=== PATIENT | male | born 1980 | race Caucasian/White ===

== ENCOUNTER 2023-01-06 18:52 | Emergency (ER) | payer MEDICAID, SELFPAY ==
[2023-01-06 18:59] VITALS: BP 154/88; PULSE 120; RESP 18; TEMP 36.7; O2SAT 99; BMI 37.3
--- NOTE | 2023-01-06 19:07 | ED.C_ITS ---
HPI - Psych General: Chief Complaint: Psychiatric Symptoms Stated Complaint: MHE Time Seen by Provider: 01/06/23 19:00 Source: patient Mode of arrival: ambulatory Limitations: no limitations History of Present Illness: 42-year-old male states he has a history of bipolar along with depression states has been having increasing severe depression he states that he has had some passing suicidal thoughts denies any specific plans denies any worsening improving factors. He states he feels like that needs his meds adjusted as he is out of some of them currently Associated symptoms: Reports depression and suicidal ideation Review of Systems Const: Denies: fever(s), chills, body aches or change in appetite ENMT: Denies: throat pain or dental pain Card: Denies: chest pain Resp: Denies: dyspnea GI: Denies: abdominal pain, nausea, vomiting or diarrhea Musc: Denies: neck pain or back pain Skin/Breast: Denies: rash Neuro: Denies: headache(s) Psych: Reports: depression and suicidal ideation Physical Exam Const: COMMON NORMALS: no acute distress, patient oriented x3 and healthy appearing HENMT: COMMON NORMALS: normocephalic and atraumatic HEAD & SCALP: normocephalic and atraumatic Neck/C-Spine: COMMON NORMALS: full ROM and supple Chest: COMMONS NORMALS: normal inspection of the chest Resp: COMMON NORMALS: normal respiratory effort Extremity: COMMON NORMALS: normal to inspection and full ROM Neuro: COMMON NORMALS: patient oriented x3, moves all extremities and no focal motor deficits Psych: COMMON NORMALS: mental status grossly normal, Normal thought process present and cooperative MOOD & AFFECT: Yes depressed mood THOUGHT PROCESS: Normal thought process present Skin: COMMON NORMALS: no rashes or lesions noted and no wounds GENERAL SKIN EXAM: no rashes or lesions noted Course Vital Signs: Vital signs: Vital Signs Temperature 98.0 F 01/06/23 18:59 Pulse Rate 120 H 01/06/23 18:59 Respiratory Rate 18 01/06/23 18:59 Blood Pressure 154/88 01/06/23 18:59 Pulse Oximetry 99 01/06/23 18:59 MDM - Psych Medical Decision Making Patient presents here with depression he is had passing suicidal thoughts none here. Patient first went to be admitted but when he could not go outside and smoke he did not want to stay I did have him evaluated by Dr. Anguiano psychiatry who agrees that patient is not a threat to himself at this time and is stable for discharge Medical Records I reviewed the patient's medical records. Lab Data I reviewed the patient's lab results. 01/06/23 19:25 01/06/23 19:25 Laboratory Results WBC 8.48 10^3/uL (3.29-11.43) 01/06/23 19:25 RBC 4.76 10^6/uL (3.85-5.65) 01/06/23 19:25 Hgb 12.90 g/dL (11.27-16.99) 01/06/23 19:25 Hct 43.0 % (37-53) 01/06/23 19:25 MCV 90.3 fl (82-101) 01/06/23 19: MCH 27.1 pg (27-33) 01/06/23 19:25 MCHC 30.0 g/dL (30-55) 01/06/23 19:25 RDW 15.1 % (12.1-15.1) 01/06/23 19:25 Plt Count 317 10^3/cmm (157-399) 01/06/23 19:25 MPV 10.3 fL (7.4-10.4) 01/06/23 19:25 Neut % (Auto) 71.7 % 01/06/23 19:25 Lymph % (Auto) 20.9 % 01/06/23 19:25 [place] % (Auto) 5.9 % 01/06/23 19:25 Eos % (Auto) 0.5 % 01/06/23 19:25 Baso % (Auto) 0.6 % 01/06/23 19:25 Neut # (Auto) 6.09 10^3/uL (1.8-7.7) 01/06/23 19:25 Lymph # (Auto) 1.8 10^3/uL (0.8-4.8) 01/06/23 19:25 [place] # (Auto) 0.5 10^3/uL (0.2-0.9) 01/06/23 19:25 Eos # (Auto) 0.0 10^3/uL (0.0-0.8) 01/06/23 19:25 Baso # (Auto) 0.1 10^3/uL (0.0-0.1) 01/06/23 19:25 Nucleated RBC % (auto) 0 % 01/06/23 19:25 Nucleated RBCs # 0.0 /100WBC 01/06/23 19:25 Sodium 137 mmol/L (136-145) 01/06/23 19:25 Potassium 4.6 mmol/L (3.5-5.1) 01/06/23 19:25 Chloride 102 mmol/L (98-107) 01/06/23 19:25 Carbon Dioxide 22 mmol/L (22-29) 01/06/23 19:25 Anion Gap 17.6 (5-19) 01/06/23 19:25 BUN 25 mg/dL (6-20) H 01/06/23 19:25 Creatinine 1.2 mg/dL (0.7-1.2) 01/06/23 19:25 GFR Calculation 66.1 mL/min (90-130) L 01/06/23 19:25 Glucose 186 mg/dL (65-115) H 01/06/23 19:25 Calculated Osmolality 293 mOsm/kg (285-295) 01/06/23 19:25 Calcium 9.2 mg/dL (8.5-10.5) 01/06/23 19:25 Total Bilirubin 0.4 mg/dL (0.15-1.2) 01/06/23 19:25 AST 24 U/L (0-40) 01/06/23 19:25 ALT 45 U/L (0-41) H 01/06/23 19:25 Alkaline Phosphatase 82 U/L (40-130) 01/06/23 19:25 Total Protein 8.0 g/dL (6.6-8.7) 01/06/23 19:25 Albumin 4.1 g/dL (3.5-5.2) 01/06/23 19:25 Globulin 3.9 g/dL (1.3-4.6) 01/06/23 19:25 Salicylates < 0.3 mg/dL (3-10) L 01/06/23 19:25 Acetaminophen < 5.0 ug/mL (10-30) L 01/06/23 19:25 Ethyl Alcohol < 10 mg/dL (0-10) 01/06/23 19:25 All radiology interpretation(s) finalized by discharge Discharge Plan Discharge Patient Disposition: Home Clinical Impression: Depression Condition: Stable Prescriptions: No Action No Known Home Medications Discharge Orders: Discharge ED (Routine); Ordered 01/06/23 Ordered By: Leanna Pacheco Discharge Diet: Advance as tolerated Discharge Activity: Resume usual activity Patient Instructions: Depression (ED) Coding Level of Care Code ED Border Machine Operator for Sahra Markham
[2023-01-06 19:43] LABS: Basophils # 0.1 10^3/uL (0.0-0.1); Basophils % 0.6 %; Eosinophils % 0.5 %; Lymphocytes # 1.8 10^3/uL (0.8-4.8); Lymphocytes % 20.9 %; Mean Corpuscular Hemoglobin 27.1 pg (27-33); Mean Corpuscular Volume 90.3 fl (82-101); Mean Platelet Volume 10.3 fL (7.4-10.4); Monocytes # 0.5 10^3/uL (0.2-0.9); Monocytes % 5.9 %; Neutrophils # 6.09 10^3/uL (1.8-7.7); Neutrophils % 71.7 %; Nucleated Red Blood Cells % 0 %; Platelet Count 317 10^3/cmm (157-399); Red Blood Count 4.76 10^6/uL (3.85-5.65); Red Cell Distribution Width 15.1 % (12.1-15.1); White Blood Count 8.48 10^3/uL (3.29-11.43)
[2023-01-06] MEDS: LORazepam 2 mg Tablet PO (19:55)
[2023-01-06 20:02] LABS: Alanine Aminotransferase 45 U/L (0-41); Albumin Level 4.1 g/dL (3.5-5.2); Alkaline Phosphatase 82 U/L (40-130); Anion Gap 17.6 (5-19); Aspartate Amino Transferase 24 U/L (0-40); Blood Urea Nitrogen 25 mg/dL (6-20); Calcium 9.2 mg/dL (8.5-10.5); Carbon Dioxide 22 mmol/L (22-29); Chloride 102 mmol/L (98-107); Globulin 3.9 g/dL (1.3-4.6); Glomerular Filtration Rate 66.1 mL/min (90-130); Glucose 186 mg/dL (65-115); Osmolality Calculated 293 mOsm/kg (285-295); Potassium 4.6 mmol/L (3.5-5.1); Sodium 137 mmol/L (136-145); Total Bilirubin 0.4 mg/dL (0.15-1.2)
[2023-01-06 20:06] LABS: Acetaminophen < 5.0 ug/mL (10-30); Alcohol Level < 10 mg/dL (0-10); Salicylate < 0.3 mg/dL (3-10)
== END 2023-01-06 20:44 | disposition home or self-care (01) ==
PROVIDERS: Emergency Provider Emergency Medicine
DX: F32.A Depression, unspecified (principal)
CPT/HCPCS: 36415; 80053; 80307; 85025; 99283

== ENCOUNTER 2023-01-07 08:09 | Inpatient (IN) | payer MEDICAID, SELFPAY ==
--- NOTE | 2023-01-07 09:02 | XR_ITS ---
WS: [id number] PORTABLE CHEST HISTORY: hx testicular Ca COMPARISON: None available. Lungs are clear and well expanded. No pleural effusion or pneumothorax. Cardiac size: Normal. Mediastinum/Aorta: Normal mediastinum. No osseous abnormality seen. IMPRESSION: Unremarkable portable chest.
--- NOTE | 2023-01-07 09:03 | ED.C_ITS ---
HPI - Psych 2 General: Stated Complaint: Si, Dizzy, nausea Time Seen by Provider: 01/07/23 08:39 Source: patient Mode of arrival: ambulatory History of Present Illness: 42-year-old male presents to the emergen cy room with complaint of suicidal ideation he took 3 g of Trileptal a couple of hours ago. Denies taking anything else. He has a history of previous admissions for psychiatric illnesses and history of previous suicidal attempts. He also states he has a history of testicular cancer with metastasis that he had incomplete treatment for at [facility] in [place]. He was recently imprisoned he states he in the past used methamphetamine and marijuana and has been clean for about 7 to 9 months. He is awake alert and oriented answers questions appropriately. MD complaint: suicidal ideation History of same: Yes Relieving factors: none Exacerbating factors: none Associated symptoms: Reports no associated symptoms, depression and suicidal ideation; Deny auditory hallucinations, visual hallucinations, delusions, homicidal ideation, racing thoughts or other If self harm: admits thoughts of self harm, has plan, has acted on plan and intentional overdose Review of Systems 2 Const: Denies: fever(s) or chills Card: Denies: chest pain Resp: Denies: dyspnea GI: Denies: abdominal pain : Denies: dysuria, urinary frequency or urinary urgency Musc: Denies: neck pain or back pain Skin/Breast: Denies: rash Psych: Reports: depression and suicidal ideation; Denies: visual hallucinations, auditory hallucinations or homicidal ideation Physical Exam 2 Const: GENERAL APPEARANCE: cooperative and comfortable O RIENTATION/CONSCIOUSNESS: Yes awake, Yes oriented to person, Yes oriented to place and Yes oriented to time HENMT: COMMON NORMALS: normocephalic, atraumatic and hearing grossly normal bilaterally HEAD & SCALP: normocephalic and atraumatic Resp: COMMON NORMALS: normal respiratory effort, No retractions, No use of accessory muscles and clear to auscultation bilaterally AUSCULTATION: clear to auscultation bilaterally Cardio: COMMON NORMALS: regular rate, regular rhythm and No murmurs present (Cardio) RATE: regular rate RHYTHM: regular rhythm GI: COMMON NORMALS: Soft to palpation and No hepatosplenomegaly present A USCULTATION: Yes normoactive bowel sounds PALPATION: Yes Soft to palpation, No Tenderness to palpation present (GI), No Guarding due to palpation present (GI) and Yes No hepatosplenomegaly present Extremity: COMMON NORMALS: normal to inspection, capillary refill normal, no clubbing, cyanosis or edema, no calf tenderness and no pedal edema Neuro: SENSORIUM/ORIENTATION: Yes oriented to person, Yes oriented to place and Yes oriented to time Psych: THOUGHT CONTENT: No delusions Skin: COMMON NORMALS: no rashes or lesions noted GENERAL SKIN EXAM: no rashes or lesions noted Course 2 Vital Signs: Vital signs: Vital Signs Temperature 98.0 F 01/10/23 20:21 Pulse Rate 109 H 01/10/23 20:21 Respiratory Rate 20 H 01/10/23 20:21 Blood Pressure 129/60 01/10/23 20:21 Pulse Oximetry 97 01/10/23 20:21 Oxygen Delivery Me thod Room Air 01/10/23 20:21 MDM - Psych Medical Decision Making Discussed poison control. They did not feel any further observation was needed. Discussed with hospitalist and with psychiatry will admit to the MPU if the patient has any problems, hospitalist can be consulted will admit for suicidal ideation Medical Records I reviewed the patient's medical records. Lab Data I reviewed the patient's lab results. 01/07/23 09:08 01/07/23 09:08 Laboratory Results WBC 6.79 10^3/uL (3.29-11.43) 01/07/23 09:08 RBC 4.53 10^6/uL (3.85-5.65) 01/07/23 09:08 Hgb 12.10 g/dL (11.27-16.99) 01/07/23 09:08 Hct 40.7 % (37-53) 01/07/23 09:08 MCV 89.8 fl (82-101) 01/07/23 09:08 MCH 26.7 pg (27-33) L 01/07/23 09:08 MCHC 29.7 g/dL (30-55) L 01/07/23 09:08 RDW 15.2 % (12.1-15.1) H 01/07/23 09:08 Plt Count 269 10^3/cmm (157-399) 01/07/23 09:08 MPV 10.9 fL (7.4-10.4) H 01/07/23 09:08 Neut % (Auto) 73.4 % 01/07/23 09:08 Lymph % (Auto) 19.6 % 01/07/23 09:08 [place] % (Auto) 5.6 % 01/07/23 09:08 Eos % (Auto) 0.6 % 01/07/23 09:08 Baso % (Auto) 0.4 % 01/07/23 09:08 Neut # (Auto) 4.98 10^3/uL (1.8-7.7) 01/07/23 09:08 Lymph # (Auto) 1.3 10^3/uL (0.8-4.8) 01/07/23 09:08 [place] # (Auto) 0.4 10^3/uL (0.2-0.9) 01/07/23 09:08 Eos # (Auto) 0.0 10^3/uL (0.0-0.8) 01/07/23 09:08 Baso # (Auto) 0.0 10^3/uL (0.0-0.1) 01/07/23 09:08 Nucleated RBC % (auto) 0 % 01/07/23 09:08 Nucleated RBCs # 0.0 /100WBC 01/07/23 09:08 Sodium 142 mmol/L (136-145) 01/07/23 09:08 Potassium 5.0 mmol/L (3.5-5.1) 01/07/23 09:08 Chloride 107 mmol/L (98-107) 01/07/23 09:08 Carbon Dioxide 25 mmol/L (22-29) 01/07/23 09:08 Anion Gap 15.0 (5-19) 01/07/23 09:08 BUN 26 mg/dL (6-20) H 01/07/23 09:08 Creatinine 1.1 mg/dL (0.7-1.2) 01/07/23 09:08 GFR Calculation 73.1 mL/min (90-130) L 01/07/23 09:08 Glucose 161 mg/dL (65-115) H 01/07/23 09:08 Calculated Osmolality 302 mOsm/kg (285-295) H 01/07/23 09:08 Calcium 9.4 mg/dL (8.5-10.5) 01/07/23 09:08 Total Bilirubin 0.2 mg/dL (0.15-1.2) 01/07/23 09:08 AST 26 U/L (0-40) 01/07/23 09:08 ALT 44 U/L (0-41) H 01/07/23 09:08 Alkaline Phosphatase 84 U/L (40-130) 01/07/23 09:08 Total Protein 7.6 g/dL (6.6-8.7) 01/07/23 09:08 Albumin 4.1 g/dL (3.5-5.2) 01/07/23 09:08 Globulin 3.5 g/dL (1.3-4.6) 01/07/23 09:08 Urine Color Yellow (Yellow) 01/07/23 11:25 Urine Appearance Clear (CLEAR) 01/07/23 11:25 Urine pH 5 (5-7) 01/07/23 11:25 Ur Specific [place] 1.020 (1.005-1.030) 01/07/23 11:25 Urine Protein Trace (Negative) 01/07/23 11:25 Urine Glucose (UA) 2+ (Normal) H 01/07/23 11:25 Urine Ketones 1+ (Negative) H 01/07/23 11:25 Urine Blood Neg (Negative) 01/07/23 11:25 Urine Nitrate Negative (Negative) 01/07/23 11:25 Urine Bilirubin Neg (Negative) 01/07/23 11:25 Urine Urobilinogen Norm mg/dL (Negative) 01/07/23 11:25 Ur Leukocyte Esterase Negative (Negative) 01/07/23 11:25 Urine RBC None /hpf (0-2) 01/07/23 11:25 Urine WBC Rare /hpf (0-5) 01/07/23 11:25 Ur Squamous Epith Cells Rare /hpf (0-5) 01/07/23 11:25 Amorphous Sediment Not Reportable 01/07/23 11:25 Urine Bacteria None /hpf (NONE) 01/07/23 11:25 Urine Mucus Trace /hpf 01/07/23 11:25 Salicylates < 0.3 mg/dL (3-10) L 01/07/23 09:08 Urine Opiates Screen Negative ng/mL (Negative) 01/07/23 11:25 Acetaminophen < 5.0 ug/mL (10-30) L 01/07/23 09:08 Ur Barbiturates Screen Negative ng/mL (Negative) 01/07/23 11:25 Oxcarbazepine Metabol 17.8 mcg/mL (8.0-35.0) 01/07/23 09:08 Ur Phencyclidine Scrn Negative ng/mL (Negative) 01/07/23 11:25 Ur Amphetamines Screen Negative ng/mL (Negative) 01/07/23 11:25 U Benzodiazepines Scrn Positive ng/mL (Negative) H 01/07/23 11:25 Urine Cocaine Screen Negative ng/mL (Negative) 01/07/23 11:25 U Marijuana (THC) Screen Negative ng/mL (Negative) 01/07/23 11:25 Ethyl Alcohol < 10 mg/dL (0-10) 01/07/23 09:08 All radiology interpretation(s) finalized by discharge Discharge Plan Discharge Patient Disposition: Admitted As Inpatient Admit Provider: Jr Dang Clinical Impression: Suicidal ideation, Depression Condition: Stable Coding Level of Care Code ED Manager Flight for Sahra Markham
[2023-01-07 09:37] LABS: Basophils % 0.4 %; Eosinophils % 0.6 %; Hematocrit 40.7 % (37-53); Lymphocytes # 1.3 10^3/uL (0.8-4.8); Lymphocytes % 19.6 %; Mean Corpuscular HGB Conc 29.7 g/dL (30-55); Mean Corpuscular Hemoglobin 26.7 pg (27-33); Mean Corpuscular Volume 89.8 fl (82-101); Mean Platelet Volume 10.9 fL (7.4-10.4); Monocytes # 0.4 10^3/uL (0.2-0.9); Monocytes % 5.6 %; Neutrophils # 4.98 10^3/uL (1.8-7.7); Neutrophils % 73.4 %; Nucleated Red Blood Cells % 0 %; Platelet Count 269 10^3/cmm (157-399); Red Blood Count 4.53 10^6/uL (3.85-5.65); Red Cell Distribution Width 15.2 % (12.1-15.1); White Blood Count 6.79 10^3/uL (3.29-11.43)
[2023-01-07 09:54] LABS: Alanine Aminotransferase 44 U/L (0-41); Albumin Level 4.1 g/dL (3.5-5.2); Alkaline Phosphatase 84 U/L (40-130); Blood Urea Nitrogen 26 mg/dL (6-20); Calcium 9.4 mg/dL (8.5-10.5); Carbon Dioxide 25 mmol/L (22-29); Chloride 107 mmol/L (98-107); Globulin 3.5 g/dL (1.3-4.6); Glomerular Filtration Rate 73.1 mL/min (90-130); Glucose 161 mg/dL (65-115); Osmolality Calculated 302 mOsm/kg (285-295); Sodium 142 mmol/L (136-145); Total Bilirubin 0.2 mg/dL (0.15-1.2); Total Protein 7.6 g/dL (6.6-8.7)
--- NOTE | 2023-01-07 09:58 | ECG_ITS ---
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 Measurements Intervals Nash Rate: 99 P: 61 SC: 165 QRS: -13 QRSD: 106 T: 53 QT: 380 QTc: 488 Interpretive Statements SINUS RHYTHM No significant abnormality noted No previous ECG available for comparison Electronically Signed On 01-07-2023 16:55:38 WEATHER FORECASTER by Sully Hickey M.D. [id number]
[2023-01-07 10:00] LABS: Acetaminophen < 5.0 ug/mL (10-30); Alcohol Level < 10 mg/dL (0-10); Salicylate < 0.3 mg/dL (3-10)
[2023-01-07 10:02] LABS: Aspartate Amino Transferase 26 U/L (0-40)
--- NOTE | 2023-01-07 11:31 | PC.PHAR ---
pt brought in medication bottles
[2023-01-07 11:45] VITALS: BP 112/68; PULSE 100; RESP 16; O2SAT 98
[2023-01-07 12:04] LABS: Amphetamines Screen Urine Negative (Negative); Barbiturates Screen Urine Negative (Negative); Benzodiazepines Screen Urine Positive (Negative); Cocaine Screen Urine Negative (Negative); Glucose Urine UA 2+ (Normal); Opiate Screen Urine Negative (Negative); PCP Screen Urine Negative (Negative); Protein Urine Trace (Negative); THC Screen Urine Negative (Negative); Urine Appearance Clear (CLEAR); Urine Color Yellow (Yellow); pH Urine 5 (5-7)
[2023-01-07 12:05] LABS: Add Urine Microscopic? YES; Bilirubin Urine Neg (Negative); Blood Urine Neg (Negative); Ketones Urine 1+ (Negative); Leukocyte Esterase Urine Negative (Negative); Nitrate Urine Negative (Negative); Urobilinogen Urine Norm (Negative)
[2023-01-07 12:13] LABS: Add Urine Culture? No; Mucus Urine TRACE /hpf; Squamous Epithelial Cell Urine RARE /hpf (0-5); WBC Urine RARE /hpf (0-5)
--- NOTE | 2023-01-07 12:20 | PC.NURSE ---
96 hr rights reviewed with patient with [facility] security assistant Robert @[id number]. No questions or concerns verbalized at this time. 96 hr pt rights lest at bedside with patient.
[2023-01-07 12:43] VITALS: BP 144/66; PULSE 102; RESP 16; TEMP 36.6; O2SAT 100
[2023-01-07 14:00] VITALS: BP 143/83; PULSE 108; RESP 16; TEMP 36.6; O2SAT 96
[2023-01-07] MEDS: nicotine 4 mg lozenge MUCOUS MEM ×2 (14:09→19:15)
--- NOTE | 2023-01-07 17:00 | PC.NURSE ---
Reached out to [facility] in [place], [place]. They confirmed he does receive treatment for testicular cancer there, but has not been seen since December 27, 2021.
--- NOTE | 2023-01-07 17:36 | W.PM.NPUH&PS ---
Providers/Chief Complaint Admitting Physician: Jr Dang MD Chief Complaint: Si, Dizzy, nausea HPI NPU History of Present Illness Heri Martel is a 42 year old male admitted with an overdose on 3 g of Trileptal with complaints of suicidal ideation. The patient was admitted to the neuropsychiatric unit for further evaluation and treatment. He reports that he has stage III testicular cancer with metastasis to the neck. He states that his treatment had been incomplete at [facility] in [place]. He reports that he had been imprisoned until a few weeks ago and states that he began to use methamphetamine and marijuana after sobriety for approximately 9 months while incarcerated. He states that he has been having a history of mood swings. He reports having multiple inpatient hospitalizations. He reports a past history of depression. He reports some feelings of hopelessness. He reports being angry and frustrated as he states that his radiation therapy was not approved and because of it, the cancer had spread patent. Patient reports that he has great desire to live but at other times he alternates with having thoughts of wanting to be . The patient had endorsed a history of intense mood swings. He reports ports having problems with sitting still and states that he is frequently bored and easily distracted. He had stated that he had been diagnosed with ADHD as an adolescent and had previously been on stimulants for treatment. He also reported a history of methamphetamine abuse along with marijuana use. The patient reports that he was [facility] weeks ago and relapsed on methamphetamine while staying with a friend. Patient had reported being upset that he had received information that he would not be able to stay with his mother due to his mood instability. Patient does report PTSD related symptoms including nightmares, flashbacks, avoidance of specific places that remind him of his trauma and occasional physical violent outbursts. Inpatient hospitalizations: He reports multiple inpatient hospitalizations throughout his lifetime. Outpatient psychiatric treatment: None currently Current medications: Hydrochlorothiazide, lisinopril, Trileptal, ibuprofen, Wellbutrin Allergies: Haldol,morphine and Prozac Legal history: He reports that he spent over 18 years of his life in detention. He is currently on probation in [place] Medical history: Atrial fibrillation, testicular cancer Surgical history: None reported Drug and alcohol history: He had reported a past history of substance abuse treatment. He reports his drugs of choice remain marijuana and methamphetamine with reports that he had used methamphetamine most recently 2 weeks ago. Family psychiatric history: Unknown Social history: Patient was adopted at 2 weeks of age. He was raised by his biological mother and reports that he had did not graduate from high school and had problems with learning. He had to earned his GED. He had previously been diagnosed with ADHD. He had reported no legal problems or problems with juvenile justice until after the age of 17. He has reported having a variety of different jobs. He reports no clear history of sexual physical or emotional abuse during childhood but did report having history of PTSD stemming from his time that he was incarcerated for many years in [place]. He reports he is never been and has a 14-year-old child that he sees on occasion. Meds NPU Home Medications Medication Instructions Recorded Confirmed Last Taken Type hydrochlorothiazide 25 mg tablet 25 mg PO QAM 01/07/23 01/07/23 01/07/23 History ibuprofen 800 mg tablet 800 mg PO BID 01/07/23 01/07/23 Unknown History lisinopril 20 mg tablet 20 mg PO QAM 01/07/23 01/07/23 01/07/23 History oxcarbazepine 150 mg tablet 150 mg PO BID 01/07/23 01/07/23 01/07/23 History (Trileptal) oxcarbazepine 300 mg tablet 300 mg PO BID 01/07/23 01/07/23 01/07/23 History (Trileptal) Allergies Allergy/AdvReac Type Severity Reaction Status Date / Time fluoxetine [From Prozac] Allergy Unknown Verified 01/07/23 11:30 haloperidol Allergy Unknown Verified 01/07/23 11:30 morphine Allergy ALGY-Hives Verified 01/07/23 14:18 Penicillins Allergy Unknown Verified 01/07/23 11:30 Mental Status Exam MSE Comments: He is friendly and cooperative on interview. He appeared slightly overweight white male who appeared his stated age. His gait was within normal limits. His hygiene was fair. There was no evidence of any abnormal involuntary motor movements, tics or tremors appreciated. There was no evidence of psychomotor agitation or psychomotor retardation. He did appear somewhat fidgety on interview. His mood was described as depressed. His affect was restricted in range and mood-congruent. His thought process was linear logical and goal-directed. His thought content showed no evidence of homicidal ideation. He had endorsed passive suicidal ideation with no active plan. There was no clear evidence of delusional thinking. He did not appear to be responding to internal stimuli. His attention and concentration appeared poor. He was alert and oriented to person place time and situation. His insight was limited. His judgment is poor. His impulse control appeared guarded at this time. His recent and remote memory appear grossly intact. Vitals/I&O/Wt Last Vital Signs Temp 97.9 F 01/07/23 14:00 Pulse 108 H 01/07/23 14:00 Resp 16 01/07/23 14:00 BP 143/83 01/07/23 14:00 Pulse Ox 96 01/07/23 14:00 O2 Del Method Room Air 01/07/23 14:00 Weight last 48 hrs Weight 122.47 kg Data NPU 01/07/23 09:08 01/07/23 09:08 A&P Assessment and plan (1) Dysthymic disorder: (2) Anxiety disorder, unspecified: (3) ADHD (attention deficit hyperactivity disorder), combined type: (4) PTSD (post-traumatic stress disorder): (5) Depression: Plan The patient is a 42-year-old white male admitted with suicidal ideation and overdose on Trileptal currently facing stressors including metastatic testicular cancer. He would likely benefit from further inpatient stay with consideration to restart medications to target mood symptoms. 1. Encourage individual, group and milieu therapy. 2. Recommend sober living treatment at the highest level of care to which the patient is willing to commit. 3. Continue q-15 minute checks for safety.? 4.? Restart Wellbutrin XL 150mg in am, Trazodone 200mg at night, consider stimulant to target adhd such as Ritalin. Hold on tegretol due to overdose. 5.? Will attempt to gather collateral information. Involuntary Hold Information 96 Hour Hold: 96 Hour Involuntary Admission: Yes 96 Hour Hold Ending Date: 01/12/23 96 Hour Hold Ending Time: 12:06 Attestations NPU Medical Necessity Statement*: Inpatient hospitalization is medically necessary and deemed to ?be ?the clinically appropriate intervention ?at this time.? We will monitor/initiate medications and make changes as indicated.? The patient will be in the hospital for over 2 midnights.? The patient?s likely length of stay 5-7 days. Coding Level of Care Code Acute Code for Chg Fwd Diagnoses Dysthymic disorder F34.1 Anxiety disorder, unspecified F41.9 ADHD (attention deficit hyperactivity disorder), combined type F90.2 PTSD (post-traumatic stress disorder) F43.10 Depression F32.A
[2023-01-07] MEDS: trazodone 100 mg Tablet 200 MG PO (19:15)
[2023-01-07 20:33] VITALS: BP 153/80; PULSE 104; RESP 18; TEMP 36.4; O2SAT 97
[2023-01-08] MEDS: ibuprofen 600 mg Tablet PO ×2 (03:35→15:58)
[2023-01-08 06:00] VITALS: BP 185/67; PULSE 94; RESP 18; TEMP 36.3; O2SAT 97
[2023-01-08] MEDS: nicotine 4 mg lozenge MUCOUS MEM ×4 (06:06→19:25)
[2023-01-08] MEDS: hydroCHLOROthiazide 25 mg Tablet PO (08:29)
[2023-01-08] MEDS: lisinopril 20 mg Tablet PO (08:29)
[2023-01-08] MEDS: buPROPion XL (24 HR) 150 mg Tablet PO (08:29)
[2023-01-08 14:00] VITALS: BP 132/72; PULSE 89; RESP 17; TEMP 36.7; O2SAT 94
--- NOTE | 2023-01-08 15:52 | P.NPUPN_ITS ---
Subjective NPU 2 Subjective: 42-year-old male with a history of ADHD, and impulse control disorder not otherwise specified along with depression admitted after an overdose on Trileptal. He had reported having problems with staying on task. He continued to report being stressed by his cancer that he states is in stage III and has metastasized from his testicles. Patient reported history of chemotherapy but stated that he had not started radiation therapy yet. He reported sleep continuity disruption. He had reported having difficulty sitting still. He was compliant and able to attend groups. He denied any hallucinations. He reported some difficulties with concentration. He reported no increase in anxiety. He had reported some pain at this time and stated that he had problems with anger and mood swings. Mental Status Exam 2 MSE Comments: He is friendly and cooperative on interview. He appeared slightly overweight white male who appeared his stated age. His gait was within normal limits. His hygiene was fair. There was no evidence of any abnormal involuntary motor movements, tics or tremors appreciated. There was no evidence of psychomotor agitation or psychomotor retardation. He did appear somewhat fidgety and hyperactive on interview. His mood was described as depressed. His affect was restricted in range and mood-congruent. His thought process was linear logical and goal-directed. His thought content showed no evidence of homicidal ideation. He had endorsed passive suicidal ideation with no active plan. There was no clear evidence of delusional thinking. He did not appear to be responding to internal stimuli. His attention and concentration appeared poor. He was alert and oriented to person place time and situation. His insight was limited. His judgment is poor. His impulse control appeared guarded at this time. His recent and remote memory appear grossly intact. Vitals/I&O/Wt Last Vital Signs Temp 98.0 F 01/08/23 14:00 Pulse 89 01/08/23 14:00 Resp 17 01/08/23 14:00 BP 132/72 01/08/23 14:00 Pulse Ox 94 01/08/23 14:00 O2 Del Method Room Air 01/08/23 06:00 Weight last 48 hrs Weight 122.47 kg Data NPU 01/07/23 09:08 01/07/23 09:08 A&P Assessment and plan (1) Dysthymic disorder: (2) Anxiety disorder, unspecified: (3) ADHD (attention deficit hyperactivity disorder), combined type: (4) PTSD (post-traumatic stress disorder): (5) Depression: Plan The patient is a 42-year-old white male admitted with suicidal ideation and overdose on Trileptal currently facing stressors including metastatic testicular cancer. He would likely benefit from further inpatient stay with consideration to restart medications to target mood symptoms. 1. Encourage individual, group and milieu therapy. 2. Recommend sober living treatment at the highest level of care to which the patient is willing to commit. 3. Continue q-15 minute checks for safety.? 4.?Continue Wellbutrin XL 150mg in am, Trazodone 200mg at night, Start Ritalin 10mg tid. Consider restart of tegretol to target mood instability. 5.? Will attempt to gather collateral information. Involuntary Hold Information 2 96 Hour Hold: 96 Hour Involuntary Admission: Yes 96 Hour Hold Ending Date: 01/12/23 96 Hour Hold Ending Time: 12:06 Attestations NPU 2 Medical Necessity Statement*: Inpatient hospitalization is medically necessary and deemed to ?be ?the clinically appropriate intervention ?at this time.? We will monitor/initiate medications and make changes as indicated.? The patient?s likely length of stay 3-5 days. Coding Level of Care Code Acute Code for [facility] Fwd Diagnoses Dysthymic disorder F34.1 Anxiety disorder, unspecified F41.9 ADHD (attention deficit hyperactivity disorder), combined type F90.2 PTSD (post-traumatic stress disorder) F43.10 Depression F32.A
[2023-01-08 20:03] VITALS: BP 115/64; PULSE 102; RESP 17; TEMP 36.9; O2SAT 93
[2023-01-08] MEDS: trazodone 100 mg Tablet 200 MG PO (20:17)
[2023-01-09] MEDS: nicotine 4 mg lozenge MUCOUS MEM ×6 (00:46→18:06)
[2023-01-09] MEDS: ibuprofen 600 mg Tablet PO ×2 (00:46→19:50)
[2023-01-09 06:00] VITALS: PULSE 111; RESP 20; TEMP 36.5; O2SAT 93
[2023-01-09] MEDS: hydroCHLOROthiazide 25 mg Tablet PO (07:50)
[2023-01-09] MEDS: lisinopril 20 mg Tablet PO (07:50)
[2023-01-09] MEDS: methylphenidate 10 mg Tablet PO ×3 (07:50→14:38)
[2023-01-09] MEDS: buPROPion XL (24 HR) 150 mg Tablet PO (07:51)
[2023-01-09 14:00] VITALS: BP 138/85; PULSE 89; RESP 18; TEMP 36.6; O2SAT 99
--- NOTE | 2023-01-09 18:07 | PC.NURSE ---
Pt has expressed his want to have referrals or appointments scheduled to see a Pay Agent and a Urologist.
[2023-01-09] MEDS: trazodone 100 mg Tablet 200 MG PO (19:31)
--- NOTE | 2023-01-09 19:41 | P.NPUPN_ITS ---
Subjective NPU 2 Subjective: Patient presented today reporting that he did leave after we spoke in the emergency room the other night but did return as things did not go as planned. He reports that he and Dr. Dang restarted his medications and that he feels like he is doing a little better but it has been too soon. We agreed that we would take a little time to make sure the medication is effective. He was reporting that he needs to get his act together so that he can be accepted back at his mother's place which is his goal. He currently denied any side effects to his medications. Mental Status Exam 2 MSE Comments: This is an obese versus morbidly obese white male in hospital scrubs with limited grooming and adequate eye contact. No abnormal movements except for mild psychomotor retardation. Cooperative with exam and mild distress. Speech was normal rate and volume. Mood described as cautiously optimistic. Affect congruent. Thought process organized. Thought content: Patient denied suicidal or homicidal ideation, there were no delusions reported or noted, he denied any auditory or visual hallucinations. Attention and concentration were intact and memory was mostly reliable but none were formally tested. He is alert and oriented x 3. Insight and judgment appear improving and impulse control is limited. Vitals/I&O/Wt Last Vital Signs Temp 98.6 F 01/09/23 20:28 Pulse 101 H 01/09/23 20:28 Resp 18 01/09/23 20:28 BP 121/62 01/09/23 20:28 Pulse Ox 96 01/09/23 20:28 O2 Del Method Room Air 01/09/23 20:28 Data NPU 01/07/23 09:08 01/07/23 09:08 A&P Assessment and plan (1) Dysthymic disorder: (2) Anxiety disorder, unspecified: (3) ADHD (attention deficit hyperactivity disorder), combined type: (4) PTSD (post-traumatic stress disorder): (5) Depression: Plan The patient is a 42-year-old white male admitted with suicidal ideation and overdose on Trileptal currently facing stressors including metastatic testicular cancer. He would likely benefit from further inpatient stay with consideration to restart medications to target mood symptoms. 1. Encourage individual, group and milieu therapy. 2. Recommend sober living treatment at the highest level of care to which the patient is willing to commit. 3. Continue q-15 minute checks for safety.? 4.?Continue Wellbutrin XL 150mg in am, Trazodone 200mg at night, Started Ritalin 10mg tid. Consider restart of tegretol to target mood instability. 5.? Will attempt to gather collateral information. Involuntary Hold Information 2 96 Hour Hold: 96 Hour Involuntary Admission: Yes 96 Hour Hold Ending Date: 01/12/23 96 Hour Hold Ending Time: 12:06 Attestations NPU 2 Medical Necessity Statement*: Inpatient hospitalization is medically necessary and deemed to ?be ?the clinically appropriate intervention ?at this time.? We will monitor/initiate medications and make changes as indicated.? The patient?s likely length of stay 2-4 days. Coding Level of Care Code Acute Code for g Fwd Diagnoses Dysthymic disorder F34.1 Anxiety disorder, unspecified F41.9 ADHD (attention deficit hyperactivity disorder), combined type F90.2 PTSD (post-traumatic stress disorder) F43.10 Depression F32.A
[2023-01-09 20:28] VITALS: BP 121/62; PULSE 101; RESP 18; TEMP 37; O2SAT 96
[2023-01-10] MEDS: nicotine 4 mg lozenge MUCOUS MEM ×6 (04:25→21:21)
[2023-01-10 06:00] VITALS: BP 159/70; PULSE 110; RESP 17; O2SAT 95
--- NOTE | 2023-01-10 08:32 | PC.NURSE ---
Patient rates anxiety 7/10 and depression 4/10. When asked about AVH, patient stated not really . Patient appears to be in good spirits. Denies SI, HI.
[2023-01-10] MEDS: lisinopril 20 mg Tablet PO (08:36)
[2023-01-10] MEDS: hydroCHLOROthiazide 25 mg Tablet PO (08:36)
[2023-01-10] MEDS: buPROPion XL (24 HR) 150 mg Tablet PO (08:36)
[2023-01-10] MEDS: methylphenidate 10 mg Tablet PO ×3 (08:38→15:42)
[2023-01-10] MEDS: ibuprofen 600 mg Tablet PO ×2 (08:52→15:46)
[2023-01-10] MEDS: hyDROXYzine 25 mg Capsule 50 MG PO (08:52)
--- NOTE | 2023-01-10 09:10 | P.NPUPN_ITS ---
Subjective NPU 2 Subjective: Patient presented today reporting that he is doing okay. He reports he has been on Tegretol in the past but he does not think it worked really well for him. We discussed the possibility of considering Neurontin and he reported having some ill response to it but also identifying that he was having significant withdrawal from methamphetamines when they tried to initiate it. We discussed the risks, benefits and alternatives of a trial of Neurontin and he understood and agreed to proceed as is documented in this note. He is struggling to figure out where he will go next as he considers returning to his mom's but she appears to be clear that he cannot return. Mental Status Exam 2 MSE Comments: This is an obese versus morbidly obese white male in hospital scrubs with limited grooming and adequate eye contact. No abnormal movements except for mild psychomotor retardation. Cooperative with exam and mild distress. Speech was normal rate and volume. Mood described as okay. Affect congruent. Thought process organized. Thought content: Patient denied suicidal or homicidal ideation, there were no delusions reported or noted, he denied any auditory or visual hallucinations. Attention and concentration were intact and memory was mostly reliable but none were formally tested. He is alert and oriented x 3. Insight and judgment appear improving and impulse control is limited. Vitals/I&O/Wt Last Vital Signs Temp 98.6 F 01/09/23 20:28 Pulse 110 H 01/10/23 06:00 Resp 17 01/10/23 06:00 BP 159/70 01/10/23 06:00 Pulse Ox 95 01/10/23 06:00 O2 Del Method Room Air 01/10/23 06:00 Data NPU 01/07/23 09:08 01/07/23 09:08 A&P Assessment and plan (1) Dysthymic disorder: (2) Anxiety disorder, unspecified: (3) ADHD (attention deficit hyperactivity disorder), combined type: (4) PTSD (post-traumatic stress disorder): (5) Depression: Plan The patient is a 42-year-old white male admitted with suicidal ideation and overdose on Trileptal currently facing stressors including metastatic testicular cancer. He would likely benefit from further inpatient stay with consideration to restart medications to target mood symptoms. 1. Encourage individual, group and milieu therapy. 2. Recommend sober living treatment at the highest level of care to which the patient is willing to commit. 3. Continue q-15 minute checks for safety.? 4.?Continue Wellbutrin XL 150mg in am, Trazodone 200mg at night, Started Ritalin 10mg tid. Consider initiating Neurontin for pain/neuropathy and possible mood instability 5.? Will attempt to gather collateral information. Involuntary Hold Information 2 96 Hour Hold: 96 Hour Involuntary Admission: Yes 96 Hour Hold Ending Date: 01/12/23 96 Hour Hold Ending Time: 12:06 Attestations NPU 2 Medical Necessity Statement*: Inpatient hospitalization is medically necessary and deemed to ?be ?the clinically appropriate intervention ?at this time.? We will monitor/initiate medications and make changes as indicated.? The patient?s likely length of stay 2-4 days. Coding Level of Care Code Acute Code for [facility] Fwd Diagnoses Dysthymic disorder F34.1 Anxiety disorder, unspecified F41.9 ADHD (attention deficit hyperactivity disorder), combined type F90.2 PTSD (post-traumatic stress disorder) F43.10 Depression F32.A
[2023-01-10 12:55] LABS: Oxcarbazepine Metabolite 17.8 mcg/mL (8.0-35.0)
[2023-01-10 14:00] VITALS: BP 112/72; PULSE 86; RESP 20; TEMP 36.5; O2SAT 99
--- NOTE | 2023-01-10 18:28 | PC.NURSE ---
patient would like to change to another room because his roommate has been saying things like he wants to kill himself. Patient states that this is triggering to him. Offered to let him go to another room, patient declined stating that the other room is too cold.
[2023-01-10] MEDS: trazodone 100 mg Tablet 200 MG PO (20:04)
[2023-01-10] MEDS: acetaminophen 325 mg Tablet 650 MG PO (20:05)
[2023-01-10 20:21] VITALS: BP 129/60; PULSE 109; RESP 20; TEMP 36.7; O2SAT 97
[2023-01-11] MEDS: nicotine 4 mg lozenge MUCOUS MEM ×5 (02:46→19:43)
--- NOTE | 2023-01-11 06:40 | PC.NURSE ---
pt ref vs resp 16
--- NOTE | 2023-01-11 07:35 | P.NPUPN_ITS ---
Subjective NPU 2 Subjective: Patient presented today reporting that he is about to call his mother and once again tried to hash out their differences. He had reported to staff earlier that if he was discharged she would kill himself. And on direct examination he was suggesting that he has not been totally honest about some of his challenges. We discussed some of his challenges that minus his mother and he does not have a clear place to go. He reported that he is having no problems with his first dose of Neurontin. He denies any side effects from other medications. Mental Status Exam 2 MSE Comments: This is an obese versus morbidly obese white male in hospital scrubs with limited grooming and adequate eye contact. No abnormal movements except for mild psychomotor retardation. Cooperative with exam and mild distress. Speech was normal rate and volume. Mood described as not great to be honest I need to work on myself. Affect congruent. Thought process organized. Thought content: Patient denied suicidal or homicidal ideation, there were no delusions reported or noted, he denied any auditory or visual hallucinations. Attention and concentration were intact and memory was mostly reliable but none were formally tested. He is alert and oriented x 3. Insight and judgment appear improving and impulse control is limited. Vitals/I&O/Wt Last Vital Signs Temp 98.0 F 01/10/23 20:21 Pulse 109 H 01/10/23 20:21 Resp 20 H 01/10/23 20:21 BP 129/60 01/10/23 20:21 Pulse Ox 97 01/10/23 20:21 O2 Del Method Room Air 01/10/23 20:21 Data NPU 01/07/23 09:08 01/07/23 09:08 A&P Assessment and plan (1) Dysthymic disorder: (2) Anxiety disorder, unspecified: (3) ADHD (attention deficit hyperactivity disorder), combined type: (4) PTSD (post-traumatic stress disorder): (5) Depression: Plan The patient is a 42-year-old white male admitted with suicidal ideation and overdose on Trileptal currently facing stressors including metastatic testicular cancer. He would likely benefit from further inpatient stay with consideration to restart medications to target mood symptoms. 1. Encourage individual, group and milieu therapy. 2. Recommend sober living treatment at the highest level of care to which the patient is willing to commit. 3. Continue q-15 minute checks for safety.? 4.?Continue Wellbutrin XL 150mg in am, Trazodone 200mg at night, Started Ritalin 10mg tid. Initiate Neurontin 200 mg p.o. twice daily. 5.? Will attempt to gather collateral information. Involuntary Hold Information 2 96 Hour Hold: 96 Hour Involuntary Admission: Yes 96 Hour Hold Ending Date: 01/12/23 96 Hour Hold Ending Time: 12:06 Attestations NPU 2 Medical Necessity Statement*: Inpatient hospitalization is medically necessary and deemed to ?be ?the clinically appropriate intervention ?at this time.? We will monitor/initiate medications and make changes as indicated.? The patient?s likely length of stay 2-4 days. Coding Level of Care Code Acute Code for g Fwd Diagnoses Dysthymic disorder F34.1 Anxiety disorder, unspecified F41.9 ADHD (attention deficit hyperactivity disorder), combined type F90.2 PTSD (post-traumatic stress disorder) F43.10 Depression F32.A
[2023-01-11] MEDS: ibuprofen 600 mg Tablet PO ×2 (07:36→20:35)
[2023-01-11] MEDS: methylphenidate 10 mg Tablet PO ×3 (07:37→15:03)
[2023-01-11] MEDS: buPROPion XL (24 HR) 150 mg Tablet PO (08:08)
[2023-01-11] MEDS: hydroCHLOROthiazide 25 mg Tablet PO (08:08)
[2023-01-11] MEDS: lisinopril 20 mg Tablet PO (08:09)
[2023-01-11] MEDS: gabapentin 100 mg Capsule 200 MG PO ×2 (08:09→17:28)
[2023-01-11 14:00] VITALS: BP 119/80; PULSE 107; RESP 15; TEMP 36.5; O2SAT 95
[2023-01-11 20:16] VITALS: BP 118/78; PULSE 97; RESP 16; TEMP 36.8; O2SAT 95
[2023-01-11] MEDS: trazodone 100 mg Tablet 200 MG PO (20:32)
[2023-01-11] MEDS: acetaminophen 325 mg Tablet 650 MG PO (21:21)
[2023-01-12] MEDS: ibuprofen 600 mg Tablet PO ×2 (05:04→14:46)
[2023-01-12] MEDS: nicotine 4 mg lozenge MUCOUS MEM ×4 (05:14→19:36)
[2023-01-12 06:00] VITALS: BP 135/79; PULSE 89; RESP 14; TEMP 36.6; O2SAT 95
--- NOTE | 2023-01-12 07:49 | P.NPUPN_ITS ---
Subjective NPU 2 Subjective: Patient presented today reporting that he felt a little better this morning. He feels that the Neurontin is going well and we discussed the risks, benefits and alternatives of increasing the Neurontin to 200 mg p.o. 3 times daily and he understood and agreed to proceed as is documented in this note. He reports that he did have a chance to speak with his mother and going to her place is a nonstarter. We agreed we would work with the social work team tomorrow to look at options for where he might be going next. He denied any side effects to his medications. Mental Status Exam 2 MSE Comments: This is an obese versus morbidly obese white male in hospital scrubs with limited grooming and adequate eye contact. No abnormal movements. Cooperative with exam in no acute distress. Speech was normal rate and volume. Mood described as a little better, Affect congruent. Thought process organized. Thought content: Patient denied suicidal or homicidal ideation, there were no delusions reported or noted, he denied any auditory or visual hallucinations. Attention and concentration were intact and memory was mostly reliable but none were formally tested. He is alert and oriented x 3. Insight and judgment appear improving and impulse control is limited. Vitals/I&O/Wt Last Vital Signs Temp 97.9 F 01/12/23 06:00 Pulse 89 01/12/23 06:00 Resp 14 01/12/23 06:00 BP 135/79 01/12/23 06:00 Pulse Ox 95 01/12/23 06:00 O2 Del Method Room Air 01/12/23 06:00 Weight last 48 hrs Weight 138.799 kg Weight 138.799 kg Data NPU 01/07/23 09:08 01/07/23 09:08 A&P Assessment and plan (1) Dysthymic disorder: (2) Anxiety disorder, unspecified: (3) ADHD (attention deficit hyperactivity disorder), combined type: (4) PTSD (post-traumatic stress disorder): (5) Depression: Plan The patient is a 42-year-old white male admitted with suicidal ideation and overdose on Trileptal currently facing stressors including metastatic testicular cancer. He would likely benefit from further inpatient stay with consideration to restart medications to target mood symptoms. 1. Encourage individual, group and milieu therapy. 2. Recommend sober living treatment at the highest level of care to which the patient is willing to commit. 3. Continue q-15 minute checks for safety.? 4.?Continue Wellbutrin XL 150mg in am, Trazodone 200mg at night, Started Ritalin 10mg tid. Initiated Neurontin 200 mg p.o. twice daily. Increase Neurontin to 200 mg p.o. 3 times daily. 5.? Will attempt to gather collateral information. Involuntary Hold Information 2 96 Hour Hold: 96 Hour Involuntary Admission: Yes 96 Hour Hold Ending Date: 01/12/23 96 Hour Hold Ending Time: 12:06 Attestations NPU 2 Medical Necessity Statement*: Inpatient hospitalization is medically necessary and deemed to ?be ?the clinically appropriate intervention ?at this time.? We will monitor/initiate medications and make changes as indicated.? The patient?s likely length of stay 1-3 days. Coding Level of Care Code Acute Code for [facility] Fwd Diagnoses Dysthymic disorder F34.1 Anxiety disorder, unspecified F41.9 ADHD (attention deficit hyperactivity disorder), combined type F90.2 PTSD (post-traumatic stress disorder) F43.10 Depression F32.A
[2023-01-12] MEDS: gabapentin 100 mg Capsule 200 MG PO ×3 (07:50→20:19)
[2023-01-12] MEDS: methylphenidate 10 mg Tablet PO ×3 (07:50→14:44)
[2023-01-12] MEDS: lisinopril 20 mg Tablet PO (07:50)
[2023-01-12] MEDS: buPROPion XL (24 HR) 150 mg Tablet PO (07:50)
[2023-01-12] MEDS: acetaminophen 325 mg Tablet 650 MG PO ×2 (07:50→12:23)
[2023-01-12] MEDS: hydroCHLOROthiazide 25 mg Tablet PO (07:50)
[2023-01-12 14:00] VITALS: RESP 17
--- NOTE | 2023-01-12 19:18 | PC.NURSE ---
informed pt that he will be changing room do to his inappropriate behavior with another patient in the dayroom. pt stated that he did not know that he could not touch another patient. explained to patient that yes it is gone over with at time of admissions. pt stated he did not mean anything by it that he was just comforting her when she was upset. he stated to please give her his apologize. pt stated he will not in the future touch another person while he is here.
[2023-01-12 19:29] VITALS: RESP 17
[2023-01-12 20:10] VITALS: BP 133/66; PULSE 93; RESP 18; O2SAT 98
[2023-01-12] MEDS: trazodone 100 mg Tablet 200 MG PO (20:19)
[2023-01-13 06:00] VITALS: BP 163/92; PULSE 79; RESP 18; O2SAT 94
[2023-01-13 06:24] VITALS: BP 118/68; PULSE 79; RESP 16; O2SAT 95
[2023-01-13] MEDS: hydroCHLOROthiazide 25 mg Tablet PO (08:20)
[2023-01-13] MEDS: gabapentin 100 mg Capsule 200 MG PO ×3 (08:20→20:10)
[2023-01-13] MEDS: nicotine 4 mg lozenge MUCOUS MEM ×5 (08:20→20:10)
[2023-01-13] MEDS: lisinopril 20 mg Tablet PO (08:20)
[2023-01-13] MEDS: buPROPion XL (24 HR) 150 mg Tablet PO (08:21)
[2023-01-13] MEDS: methylphenidate 10 mg Tablet PO ×3 (08:21→14:33)
[2023-01-13] MEDS: ibuprofen 600 mg Tablet PO ×2 (08:23→20:12)
[2023-01-13] MEDS: acetaminophen 325 mg Tablet 650 MG PO (11:35)
[2023-01-13 14:00] VITALS: RESP 16
--- NOTE | 2023-01-13 18:31 | P.NPUPN_ITS ---
Subjective NPU 2 Subjective: Patient presents today reporting that he is feeling okay. He is frustrated with not having a clear plan for discharge but reports that he and the social work team working on options. He denied any issues with the medication. We discussed the likelihood of discharge in the next 48 hours. Mental Status Exam 2 MSE Comments: This is an obese versus morbidly obese white male in hospital scrubs with limited grooming and adequate eye contact. No abnormal movements. Cooperative with exam in no acute distress. Speech was normal rate and volume. Mood described as a little better, Affect congruent. Thought process organized. Thought content: Patient denied suicidal or homicidal ideation, there were no delusions reported or noted, he denied any auditory or visual hallucinations. Attention and concentration were intact and memory was mostly reliable but none were formally tested. He is alert and oriented x 3. Insight and judgment appear improving and impulse control is limited. Vitals/I&O/Wt Last Vital Signs Temp 97.6 F 01/13/23 20:18 Pulse 107 H 01/13/23 20:18 Resp 20 H 01/13/23 20:18 BP 158/104 01/13/23 20:18 Pulse Ox 99 01/13/23 20:18 O2 Del Method Room Air 01/13/23 20:18 Weight last 48 hrs Weight 138.799 kg Data NPU 01/07/23 09:08 01/07/23 09:08 A&P Assessment and plan (1) Dysthymic disorder: (2) Anxiety disorder, unspecified: (3) ADHD (attention deficit hyperactivity disorder), combined type: (4) PTSD (post-traumatic stress disorder): (5) Depression: Plan The patient is a 42-year-old white male admitted with suicidal ideation and overdose on Trileptal currently facing stressors including metastatic testicular cancer. He would likely benefit from further inpatient stay with consideration to restart medications to target mood symptoms. 1. Encourage individual, group and milieu therapy. 2. Recommend sober living treatment at the highest level of care to which the patient is willing to commit. 3. Continue q-15 minute checks for safety.? 4.?Continue Wellbutrin XL 150mg in am, Trazodone 200mg at night, Started Ritalin 10mg tid. Initiated Neurontin 200 mg p.o. twice daily. Increase Neurontin to 200 mg p.o. 3 times daily. 5.? Will attempt to gather collateral information. Involuntary Hold Information 2 96 Hour Hold: 96 Hour Involuntary Admission: Yes 96 Hour Hold Ending Date: 01/12/23 96 Hour Hold Ending Time: 12:06 Attestations NPU 2 Medical Necessity Statement*: Inpatient hospitalization is medically necessary and deemed to ?be ?the clinically appropriate intervention ?at this time.? We will monitor/initiate medications and make changes as indicated.? The patient?s likely length of stay 1-3 days. Coding Level of Care Code Acute Code for [facility] Fwd Diagnoses Dysthymic disorder F34.1 Anxiety disorder, unspecified F41.9 ADHD (attention deficit hyperactivity disorder), combined type F90.2 PTSD (post-traumatic stress disorder) F43.10 Depression F32.A
--- NOTE | 2023-01-13 18:56 | PC.NURSE ---
PT REFUSED VITALS. WILL CONTINUE TO MONITOR.
[2023-01-13] MEDS: trazodone 100 mg Tablet 200 MG PO (20:10)
[2023-01-13 20:18] VITALS: BP 158/104; PULSE 107; RESP 20; TEMP 36.4; O2SAT 99
[2023-01-14] MEDS: ibuprofen 600 mg Tablet PO ×2 (02:32→16:09)
[2023-01-14 06:00] VITALS: BP 157/65; PULSE 98; RESP 18; O2SAT 96
[2023-01-14] MEDS: nicotine 4 mg lozenge MUCOUS MEM ×4 (06:26→15:55)
[2023-01-14] MEDS: methylphenidate 10 mg Tablet PO ×3 (08:03→14:26)
[2023-01-14] MEDS: lisinopril 20 mg Tablet PO (08:03)
[2023-01-14] MEDS: buPROPion XL (24 HR) 150 mg Tablet PO (08:03)
[2023-01-14] MEDS: hydroCHLOROthiazide 25 mg Tablet PO (08:03)
[2023-01-14] MEDS: gabapentin 100 mg Capsule 200 MG PO ×2 (08:03→14:26)
--- NOTE | 2023-01-14 11:15 | P.NPUDS_ITS ---
Diagnoses at Discharge Discharge Diagnosis (1) Dysthymic disorder: Status: Acute (2) Anxiety disorder, unspecified: Status: Acute (3) ADHD (attention deficit hyperactivity disorder), combined type: Status: Acute (4) PTSD (post-traumatic stress disorder): Status: Acute (5) Depression: Status: Acute Reason for Visit Reason for Visit: Si, Dizzy, nausea Brief History: History of Present Illness Heri Martel is a 42 year old male admitted with an overdose on 3 g of Trileptal with complaints of suicidal ideation. The patient was admitted to the neuropsychiatric unit for further evaluation and treatment. He reports that he has stage III testicular cancer with metastasis to the neck. He states that his treatment had been incomplete at [facility] in [place]. He reports that he had been imprisoned until a few weeks ago and states that he began to use methamphetamine and marijuana after sobriety for approximately 9 months while incarcerated. He states that he has been having a history of mood swings. He reports having multiple inpatient hospitalizations. He reports a past history of depression. He reports some feelings of hopelessness. He reports being angry and frustrated as he states that his radiation therapy was not approved and because of it, the cancer had spread patent. Patient reports that he has great desire to live but at other times he alternates with having thoughts of wanting to be . The patient had endorsed a history of intense mood swings. He reports ports having problems with sitting still and states that he is frequently bored and easily distracted. He had stated that he had been diagnosed with ADHD as an adolescent and had previously been on stimulants for treatment. He also reported a history of methamphetamine abuse along with marijuana use. The patient reports that he was [facility] weeks ago and relapsed on methamphetamine while staying with a friend. Patient had reported being upset that he had received information that he would not be able to stay with his mother due to his mood instability. Patient does report PTSD related symptoms including nightmares, flashbacks, avoidance of specific places that remind him of his trauma and occasional physical violent outbursts. Inpatient hospitalizations: He reports multiple inpatient hospitalizations throughout his lifetime. Outpatient psychiatric treatment: None currently Current medications: Hydrochlorothiazide, lisinopril, Trileptal, ibuprofen, Wellbutrin Allergies: Haldol,morphine and Prozac Legal history: He reports that he spent over 18 years of his life in long term. He is currently on probation in [place] Medical history: Atrial fibrillation, testicular cancer Surgical history: None reported Drug and alcohol history: He had reported a past history of substance abuse treatment. He reports his drugs of choice remain marijuana and methamphetamine with reports that he had used methamphetamine most recently 2 weeks ago. Family psychiatric history: Unknown Social history: Patient was adopted at 2 weeks of age. He was raised by his biological mother and reports that he had did not graduate from high school and had problems with learning. He had to earned his GED. He had previously been diagnosed with ADHD. He had reported no legal problems or problems with juvenile justice until after the age of 17. He has reported having a variety of different jobs. He reports no clear history of sexual physical or emotional abuse during childhood but did report having history of PTSD stemming from his time that he was incarcerated for many years in [place]. He reports he is never been and has a 14-year-old child that he sees on occasion. Hospital Course Hospital Course He slowly acclimated to the individual, group and milieu therapies provided. He presented off of his medications and having significant distress status post overdose. The Tegretol on which he overdosed was not restarted. His Wellbutrin XL was restarted and he was placed on Neurontin and Ritalin. The Ritalin was changed to Concerta at discharge. He had a positive response to these medications. He worked with the social work team for appropriate aftercare appointments. He had significant improvement during his stay. He was able to contract for safety, outside of the hospital prior to discharge. During the hospitalization he had routine laboratory studies which were within normal limits except for few outliers. Additionally had a general medical evaluation which was also within normal limits and revealed no new acute processes. Discharge summary: At the time of discharge, he denied lethality or psychosis. Mood and anxiety were well managed. Patient endorsed a plan to follow-up with the aftercare recommendations of the treatment team. Patient was evaluated and deemed to be absent credible lethality, and had achieved the maximum benefit from an inpatient hospitalization, so was discharged. Involuntary Hold Information 96 Hour Hold: 96 Hour Involuntary Admission: Yes 96 Hour Hold Ending Date: 01/12/23 96 Hour Hold Ending Time: 12:06 Mental Status Exam MSE Comments: This is an obese versus morbidly obese white male in hospital scrubs with adequate grooming and adequate eye contact. No abnormal movements. Cooperative with exam in no acute distress. Speech was normal rate and volume. Mood described as better, Affect congruent. Thought process organized. Thought content: Patient denied suicidal or homicidal ideation, there were no delusions reported or noted, he denied any auditory or visual hallucinations. Attention and concentration were intact and memory was mostly reliable but none were f ormally tested. He is alert and oriented x 3. Insight and judgment appear improving and impulse control is limited. Discharge Data Studies Completed and Pending: Completed Studies During Hospitalization Category Date Time Status XR chest 1V palma ble [id number] Stat Exams 01/07/23 09:02 Completed Laboratory Results WBC 6.79 10^3/uL (3.2 9-11.43) 01/07/23 09:08 RBC 4.53 10^6/uL (3.8 5-5.65) 01/07/23 09:08 Hgb 12.10 g/dL (11.27 -16.99) 01/07/23 09:08 Hct 40.7 % (37-53) 01/07/23 09:08 MCV 89.8 fl (82-101) 01/07/23 09:08 MCH 26.7 pg (27-33) L 01/07/23 09:08 MCHC 29.7 g/dL (30-55) L 01/07/23 09:08 RDW 15.2 % (12.1-15.1 ) H 01/07/23 09:08 Plt Count 269 10^3/cmm (157 -399) 01/07/23 09:08 MPV 10.9 fL (7.4-10.4 ) H 01/07/23 09:08 Neut % (Auto) 73.4 % 01/07/23 09:08 Lymph % (Auto) 19.6 % 01/07/23 09:08 [place] % (Auto) 5.6 % 01/07/23 09:08 Eos % (Auto) 0.6 % 01/07/23 09:08 Baso % (Auto) 0.4 % 01/07/23 09:08 Neut # (Auto) 4.98 10^3/uL (1.8 -7.7) 01/07/23 09:08 Lymph # (Auto) 1.3 10^3/uL (0.8- 4.8) 01/07/23 09:08 [place] # (Auto) 0.4 10^3/uL (0.2- 0.9) 01/07/23 09:08 Eos # (Auto) 0.0 10^3/uL (0.0- 0.8) 01/07/23 09:08 Baso # (Auto) 0.0 10^3/uL (0.0- 0.1) 01/07/23 09:08 Nucleated RBC % (a uto) 0 % 01/07/23 09:08 Nucleated RBCs # 0.0 /100WBC 01/07/23 09:08 Sodium 142 mmol/L (136-1 45) 01/07/23 09:08 Potassium 5.0 mmol/L (3.5-5 .1) 01/07/23 09:08 Chloride 107 mmol/L (98-10 7) 01/07/23 09:08 Carbon Dioxide 25 mmol/L (22-29) 01/07/23 09:08 Anion Gap 15.0 (5-19) 01/07/23 09:08 BUN 26 mg/dL (6-20) H 01/07/23 09:08 Creatinine 1.1 mg/dL (0.7-1. 2) 01/07/23 09:08 GFR Calculation 73.1 mL/min (90-1 30) L 01/07/23 09:08 Glucose 161 mg/dL (65-115 ) H 01/07/23 09:08 Calculated Osmolal ity 302 mOsm/kg (285- 295) H 01/07/23 09:08 Calcium 9.4 mg/dL (8.5-10 .5) 01/07/23 09:08 Total Bilirubin 0.2 mg/dL (0.15-1 .2) 01/07/23 09:08 AST 26 U/L (0-40) 01/07/23 09:08 ALT 44 U/L (0-41) H 01/07/23 09:08 Alkaline Phosphata se 84 U/L (40-130) 01/07/23 09:08 Total Protein 7.6 g/dL (6.6-8.7 ) 01/07/23 09:08 Albumin 4.1 g/dL (3.5-5.2 ) 01/07/23 09:08 Globulin 3.5 g/dL (1.3-4.6 ) 01/07/23 09:08 Urine Color Yellow (Yellow) 01/07/23 11:25 Urine Appearance Clear (CLEAR) 01/07/23 11:25 Urine pH 5 (5-7) 01/07/23 11:25 Ur Specific Gravit y 1.020 (1.005-1.0 30) 01/07/23 11:25 Urine Protein Trace (Negative) 01/07/23 11:25 Urine Glucose (UA) 2+ (Normal) H 01/07/23 11:25 Urine Ketones 1+ (Negative) H 01/07/23 11:25 Urine Blood Neg (Negative) 01/07/23 11:25 Urine Nitrate Negative (Negati ve) 01/07/23 11:25 Urine Bilirubin Neg (Negative) 01/07/23 11:25 Urine Urobilinogen Norm mg/dL (Negat charissa) 01/07/23 11:25 Ur Leukocyte Jeniffer ase Negative (Negati ve) 01/07/23 11:25 Urine RBC None /hpf (0-2) 01/07/23 11:25 Urine WBC Rare /hpf (0-5) 01/07/23 11:25 Ur Squamous Epith Cells Rare /hpf (0-5) 01/07/23 11:25 Amorphous Sediment Not Reportable 01/07/23 11:25 Urine Bacteria None /hpf (NONE) 01/07/23 11:25 Urine Mucus Trace /hpf 01/07/23 11:25 Salicylates < 0.3 mg/dL (3-10 ) L 01/07/23 09:08 Urine Opiates Scre en Negative ng/mL (N egative) 01/07/23 11:25 Acetaminophen < 5.0 ug/mL (10-3 0) L 01/07/23 09:08 Ur Barbiturates Sc reen Negative ng/mL (N egative) 01/07/23 11:25 Oxcarbazepine [place] 17.8 mcg/mL (8.0- 35.0) 01/07/23 09:08 Ur Phencyclidine S crn Negative ng/mL (N egative) 01/07/23 11:25 Ur Amphetamines Sc reen Negative ng/mL (N egative) 01/07/23 11:25 U Benzodiazepines Scrn Positive ng/mL (N egative) H 01/07/23 11:25 Urine Cocaine Scre en Negative ng/mL (N egative) 01/07/23 11:25 U Marijuana (THC) Screen Negative ng/mL (N egative) 01/07/23 11:25 Ethyl Alcohol < 10 mg/dL (0-10) 01/07/23 09:08 Vitals: Last Vital Signs Temp 97.6 F 01/13/23 20:18 Pulse 98 01/14/23 11:29 Resp 18 01/14/23 11:29 BP 157/65 01/14/23 11:29 Pulse Ox 96 01/14/23 11:29 O2 Del Method Room Air 01/14/23 06:00 Discharge Plan Discharge Patient Disposition: Home Condition: Stable Prescriptions: New bupropion HCl 150 mg Tablet Extended Release 24 Hr 150 mg PO DAILY 30 Days Qty: 30 1RF gabapentin 300 mg capsule 300 mg PO TID 30 Days Qty: 90 1RF trazodone 100 mg Tablet 200 mg PO BEDTIME 30 Days Qty: 60 1RF Concerta 36 mg tablet extended release 24hr 36 mg PO QAM 30 Days Qty: 30 0RF Continued ibuprofen 800 mg Tablet 800 mg PO BID lisinopril 20 mg Tablet 20 mg PO QAM 30 Days Qty: 30 1RF hydrochlorothiazide 25 mg Tablet 25 mg PO QAM 30 Days Qty: 30 1RF Discontinued oxcarbazepine [Trileptal] 150 mg Tablet 150 mg PO BID oxcarbazepine [Trileptal] 300 mg Tablet 300 mg PO BID Discharge Orders: Discharge Order (Routine); Ordered 01/14/23 Ordered By: Jeffy Anguiano Referrals: [facility] [Outside] - 01/20/23 9:30 am (Initial appointment has to be done in [place] on 01.20.23 @ 9:30 check in with Kelly Peters. After you can be seen in [place]. ) Mike Beach MD [Physician] - 01/21/23 1:00 pm (Establish care/hospital follow up) Discharge Diet: Regular Discharge Activity: Resume usual activity Patient Instructions: Generalized Anxiety Disorder, Depression, Bupropion (By mouth) (Zyban, Wellbutrin XL, Wellbutrin SR, Wellbutrin), Methylphenidate, Regular and Slow Release (By mouth) (Ritalin,..., Gabapentin (By mouth), ADHD in Adults (ED), Opioid Safety Discharge Attestations NPU Time Spent in Discharge Care*: less than 30 min Specific Discharge Activities: Specific discharge activities: educating patient, discussing with case management manager/social workers/dc planners, documenting/other paperwork and evaluating patient/reviewing data Coding Level of Care Code Acute Code for [facility] Fwd Diagnoses Dysthymic disorder F34.1 Anxiety disorder, unspecified F41.9 ADHD (attention deficit hyperactivity disorder), combined type F90.2 PTSD (post-traumatic stress disorder) F43.10 Depression F32.A
[2023-01-14 11:29] VITALS: BP 157/65; PULSE 98; RESP 18; O2SAT 96
== END 2023-01-14 17:18 | disposition home or self-care (01) | DRG 881 ==
LOC: ER 11:57 → NP 12:29
PROVIDERS: Admitting Provider Psychiatry & Neurology Psychiatry; Emergency Provider Family Medicine; Visit Provider Psychiatry & Neurology Psychiatry
DX: F34.1 Dysthymic disorder (principal); R45.851 Suicidal ideations; C79.89 Secondary malignant neoplasm of other specified sites; F43.10 Post-traumatic stress disorder, unspecified; F15.10 Other stimulant abuse, uncomplicated; F12.90 Cannabis use, unspecified, uncomplicated; F41.9 Anxiety disorder, unspecified; F90.2 Attention-deficit hyperactivity disorder, combined type; F32.A Depression, unspecified; F63.9 Impulse disorder, unspecified; T42.1X2A Poisoning by iminostilbenes, intentional self-harm, initial encounter; Y92.9 Unspecified place or not applicable; C62.90 Malignant neoplasm of unspecified testis, unspecified whether descended or undescended
CPT/HCPCS: 36415; 71045; 80053; 80183; 80306; 80307; 81001; 85025; 93005; 97116; 97150; 97165; 99285

== ENCOUNTER 2023-02-04 08:43 | Outpatient (CLI) | payer MEDICAID, SELFPAY ==
[2023-02-04 09:14] LABS: Basophils % 0.3 %; Eosinophils # 0.1 10^3/uL (0.0-0.8); Eosinophils % 1.2 %; Hematocrit 37.9 % (37-53); Lymphocytes # 1.1 10^3/uL (0.8-4.8); Lymphocytes % 19.4 %; Mean Corpuscular HGB Conc 30.6 g/dL (30-55); Mean Corpuscular Hemoglobin 26.7 pg (27-33); Mean Corpuscular Volume 87.1 fl (82-101); Mean Platelet Volume 10.7 fL (7.4-10.4); Monocytes # 0.4 10^3/uL (0.2-0.9); Monocytes % 6.1 %; Neutrophils # 4.21 10^3/uL (1.8-7.7); Neutrophils % 71.8 %; Nucleated Red Blood Cells % 0 %; Platelet Count 169 10^3/cmm (157-399); Red Blood Count 4.35 10^6/uL (3.85-5.65); Red Cell Distribution Width 14.8 % (12.1-15.1); White Blood Count 5.87 10^3/uL (3.29-11.43)
[2023-02-04 09:54] LABS: Alanine Aminotransferase 21 U/L (0-41); Albumin Level 3.8 g/dL (3.5-5.2); Alkaline Phosphatase 71 U/L (40-130); Anion Gap 13.3 (5-19); Aspartate Amino Transferase 14 U/L (0-40); Blood Urea Nitrogen 18 mg/dL (6-20); Calcium 8.7 mg/dL (8.5-10.5); Carbon Dioxide 22 mmol/L (22-29); Chloride 107 mmol/L (98-107); Chol HDL Ratio 3.56 mg/dL (1.0-5.00); Cholesterol 153 mg/dL (0-200); Globulin 3.2 g/dL (1.3-4.6); Glomerular Filtration Rate 81.6 mL/min (90-130); Glucose 139 mg/dL (65-115); HDL Cholesterol 43 mg/dL (60-100); LDL Cholesterol Calculated 73 mg/dL (50-129); Osmolality Calculated 290 mOsm/kg (285-295); Potassium 4.3 mmol/L (3.5-5.1); Prostate Specific Antigen Scr 0.69 ng/mL (0-4); Sodium 138 mmol/L (136-145); Thyroid Stimulating Hormone 1.67 uIU/mL (0.27-4.20); Total Bilirubin 0.2 mg/dL (0.15-1.2); Triglycerides 185 mg/dL (0-150)
== END 2023-02-04 08:44 | disposition home or self-care (01) ==
LOC: LAB 08:44
PROVIDERS: Visit Provider Nurse Practitioner Family
DX: C62.90 Malignant neoplasm of unspecified testis, unspecified whether descended or undescended (principal)
CPT/HCPCS: 36415; 80053; 80061; 84443; 85025; G0103

== ENCOUNTER 2023-02-13 10:53 | Outpatient (CLI) | payer MEDICAID, SELFPAY ==
--- NOTE | 2023-02-13 11:06 | CT_ITS ---
WS: [id number] CT ABDOMEN AND PELVIS NONCONTRAST HISTORY: LOCALIZED SWELLING,MASS, history of testicular cancer. TECHNIQUE: Imaging performed through the abdomen and pelvis. Coronal and sagittal reformats are submi tted. All CT scans at [facility] use at least one of these dose optimization techniques: auto mated exposure control; mA and/or kV adjustment per patient size (includes targeted exams where dose is matched to clinical indication); or iterative reconstruction. DLP: 1183.37 mGy.cm COMPARISON: None available. Lower thorax: Lung bases are clear. Visualized heart is normal. No hiatal hernia. Retrocrural lymph n odes. Very small retrocrural lymph nodes. Significance is uncertain. Liver: Normal size liver. No mass or bile duct dilatation. Gallbladder: Normal gallbladder. No pericholecystic fluid or cholelithiasis. No gallbladder wall thic kening. Pancreas: Normal size and attenuation. Normal pancreatic duct. No pancreatitis or mass. Spleen: Normal. Adrenal glands: Normal. No mass. Right kidney: Normal size kidney with no mass or hydronephrosis. Left kidney: Abnormal LEFT kidney. Kidney is smaller than the RIGHT kidney by 2.0 cm. There is diffus e cortical thinning with perinephric stranding. There is mild thickening of the pararenal fascia and soft tissue infiltration throughout the pararenal fascia. There is mild dilatation of the renal pelvi s and the proximal ureter. There is increased soft tissue in the renal pelvis with proximal ureteral thickening. The LEFT ureter is encased by a soft tissue mass in the retroperitoneum beginning above t he aortic bifurcation. Retroperitoneal masses causing the more chronic appearing LEFT ureteral obstru ction with renal atrophy. Aorta: Visualized aorta is normal without IV contrast. There is increased soft tissue in the LEFT par a-aortic region consistent with adenopathy. There is confluent adenopathy in the LEFT retroperitoneum extending into the LEFT psoas muscle. There is an irregular soft tissue mass extending over a length of approximately 7.0 cm abutting the LEFT aorta and the LEFT psoas muscle and encasing the ureter. T his cluster of soft tissue lymphadenopathy measures 3.3 cm transversely. There is an additional 1.2 c m lymph node just below the level of the LEFT renal artery. No inguinal lymph nodes. No pelvic or obt urator enlarged lymph nodes. No free fluid. GI tract: Normal noncontrast imaging of the stomach, small bowel and colon. No obstruction or wall th ickening. Normal appendix. Abdominal wall: Small umbilical hernia contains fat only. Pelvis: Negative urinary bladder. No inguinal lymph nodes. Osseous structures: Mild concave deformity of L5. No destructive bone lesions. IMPRESSION: 1. No prior imaging studies available for comparison. Limited history provided. 2. Abnormal LEFT kidney. LEFT kidney is small caliber with diffuse cortical thinning, perinephric an d fascial soft tissue stranding. 3. Mild dilatation of the LEFT renal pelvis and proximal ureter. This may be a chronic obstruction. There is encasement of the proximal LEFT ureter by soft tissue in the retroperitoneum which is probab ly adenopathy. Periaortic and retroperitoneal lymphadenopathy extends to about the LEFT aorta and the LEFT psoas muscle and the LEFT ureter. 4. Soft tissue mass in the LEFT retroperitoneum encasing the aorta extends over a length of 7.0 cm x 3.3 cm. Suspect this is lymphadenopathy related to the patient's testicular cancer. Unfortunately th ere are no prior studies for comparison to document progression or improvement or stability. 5. There are a few very small retrocrural lymph nodes which are nonspecific and indeterminant.
== END 2023-02-13 10:54 | disposition home or self-care (01) ==
PROVIDERS: Visit Provider Internal Medicine
DX: R19.09 Other intra-abdominal and pelvic swelling, mass and lump (principal); C62.90 Malignant neoplasm of unspecified testis, unspecified whether descended or undescended; R93.422 Abnormal radiologic findings on diagnostic imaging of left kidney; R59.0 Localized enlarged lymph nodes; F15.20 Other stimulant dependence, uncomplicated
CPT/HCPCS: 74176

== ENCOUNTER 2023-02-13 11:58 | Outpatient (CLI) | payer MEDICAID, SELFPAY ==
[2023-02-13 13:21] LABS: Basophils # 0.1 10^3/uL (0.0-0.1); Basophils % 0.8 %; Eosinophils # 0.1 10^3/uL (0.0-0.8); Eosinophils % 1.1 %; Hematocrit 41.8 % (37-53); Lymphocytes # 1.5 10^3/uL (0.8-4.8); Lymphocytes % 23.8 %; Mean Corpuscular HGB Conc 31.1 g/dL (30-55); Mean Corpuscular Volume 86.9 fl (82-101); Mean Platelet Volume 10.6 fL (7.4-10.4); Monocytes # 0.5 10^3/uL (0.2-0.9); Neutrophils # 4.24 10^3/uL (1.8-7.7); Neutrophils % 65.7 %; Nucleated Red Blood Cells % 0 %; Platelet Count 220 10^3/cmm (157-399); Red Blood Count 4.81 10^6/uL (3.85-5.65); Red Cell Distribution Width 15.2 % (12.1-15.1); White Blood Count 6.46 10^3/uL (3.29-11.43)
[2023-02-13 13:48] LABS: Troponin T (5th) Once < 6 ng/L (0-15)
[2023-02-13 13:54] LABS: Estmated Average Glucose 137; Hemoglobin A1C 6.4 % (4.0-6.0)
[2023-02-13 13:55] LABS: Alanine Aminotransferase 25 U/L (0-41); Albumin Level 4.1 g/dL (3.5-5.2); Alkaline Phosphatase 75 U/L (40-130); Anion Gap 15.2 (5-19); Aspartate Amino Transferase 13 U/L (0-40); Blood Urea Nitrogen 24 mg/dL (6-20); Carbon Dioxide 20 mmol/L (22-29); Chloride 107 mmol/L (98-107); Chol HDL Ratio 3.56 mg/dL (1.0-5.00); Cholesterol 146 mg/dL (0-200); Globulin 3.7 g/dL (1.3-4.6); Glomerular Filtration Rate 73.1 mL/min (90-130); Glucose 114 mg/dL (65-115); HDL Cholesterol 41 mg/dL (60-100); LDL Cholesterol Calculated 58 mg/dL (50-129); LDL HDL Ratio 1.41 RATIO (0.00-3.22); Osmolality Calculated 291 mOsm/kg (285-295); Potassium 4.2 mmol/L (3.5-5.1); Prostate Specific Antigen 0.417 ng/mL (0-4); Sodium 138 mmol/L (136-145); Thyroid Stimulating Hormone 2.29 uIU/mL (0.27-4.20); Total Bilirubin 0.3 mg/dL (0.15-1.2); Total Protein 7.8 g/dL (6.6-8.7); Triglycerides 237 mg/dL (0-150)
[2023-02-13 13:59] LABS: Hepatitis A Antibody IgM Non-Reactive (Nonreactive); Hepatitis B Core AB, Total Non-Reactive (Nonreactive); Hepatitis B Surface AB 206.1 (11.5-1000); Hepatitis B Surface Antigen Non-Reactive (Nonreactive); Hepatitis C Virus Antibody Non-Reactive (Nonreactive)
[2023-02-13 14:44] LABS: HIV 1 & 2 Antibody Non-Reactive (Non-Reactiv); HIV 1 & 2 Antigen Non-Reactive (Non-Reactiv)
[2023-02-15 12:59] LABS: Hepatitis A Antibody Total NON-REACTIVE (NON-REACTIVE)
[2023-02-18 10:51] LABS: Miscellaneous Test SEE COMMENTS
== END 2023-02-13 11:59 | disposition home or self-care (01) ==
LOC: LAB 12:02
PROVIDERS: Visit Provider Internal Medicine
DX: F15.20 Other stimulant dependence, uncomplicated (principal); R22.9 Localized swelling, mass and lump, unspecified; C62.90 Malignant neoplasm of unspecified testis, unspecified whether descended or undescended
CPT/HCPCS: 36415; 80053; 80061; 83036; 84153; 84443; 84484; 85025; 86705; 86706; 86708; 86709; 86803; 87340; 87806

== ENCOUNTER 2023-02-14 13:20 | Outpatient (CLI) | payer MEDICAID, SELFPAY ==
--- NOTE | 2023-02-14 13:30 | US_ITS ---
WS: [id number] TESTICULAR ULTRASOUND HISTORY: MALIGNANT NEOPLASM OF TESTIS COMPARISON: None available. TECHNIQUE: Real-time and color Doppler imaging or utilized to perform a testicular ultrasound. Right testicle: 4.6 cm x 3.1 cm x 2.1 cm. Normal size and echogenicity. No mass or torsion. Normal color Doppler is present throughout. Systolic and diastolic velocities are both present. No significant hydrocele. Right epididymis: Normal epididymis with no increased vascularity. Left testicle: Prior LEFT orchiectomy. IMPRESSION: 1. Prior LEFT orchiectomy. 2. Normal RIGHT testicle.
== END 2023-02-14 13:21 | disposition home or self-care (01) ==
LOC: RAD 13:20
PROVIDERS: Visit Provider Internal Medicine
DX: C62.92 Malignant neoplasm of left testis, unspecified whether descended or undescended (principal); F15.20 Other stimulant dependence, uncomplicated; R22.9 Localized swelling, mass and lump, unspecified; Z90.79 Acquired absence of other genital organ(s)
CPT/HCPCS: 76870

== ENCOUNTER → 2023-02-17 09:35 | Outpatient (BNVA) | payer MEDICAID, SELFPAY | PROVIDERS: Visit Provider Internal Medicine | DX: F15.20 Other stimulant dependence, uncomplicated (principal); I45.10 Unspecified right bundle-branch block | CPT/HCPCS: 93005 ==

== ENCOUNTER 2023-06-28 03:41 | Emergency (ER) | payer MEDICAID, SELFPAY ==
[2023-06-28 04:01] VITALS: BP 170/117; PULSE 111; RESP 18; TEMP 36.8; O2SAT 95; BMI 41.5
--- NOTE | 2023-06-28 04:28 | XRR_ITS ---
PROCEDURE INFORMATION: Exam: XR Right Finger(s) Exam date and time: 06/28/2023 4:46 AM Age: 43 years old Clinical indication: Fingers; Right; Patient HX: Swelling and redness to distal phalange of RT third digit. ; Additional info: 3 TECHNIQUE: Imaging protocol: Radiologic exam of the right fingers. Views: Minimum 2 views. COMPARISON: No relevant prior studies available. FINDINGS: Bones/joints: Soft tissue swelling adjacent to the base fingernail. No subcutaneous gas. No underlying osseous or joint abnormality observed.. Soft tissues: Normal. XR/XR finger RT min 2V [id number] IMPRESSION: No acute findings.
--- NOTE | 2023-06-28 04:28 | CTR_ITS ---
PROCEDURE INFORMATION: Exam: CT Pelvis With Contrast Exam date and time: 06/28/2023 5:05 AM Age: 43 years old Clinical indication: Mass, lump, or swelling; Prior surgery; Surgery date: 6+ months; Surgery type: Orchiectomy; Patient HX: Swelling and redness to left inner thigh. History of testicular cancer. ; Additional info: Left innter thigh abscess, periscrotal TECHNIQUE: Imaging protocol: Computed tomography of the pelvis with contrast. Radiation optimization: All CT scans at this facility use at least one of these dose optimization techniques: automated exposure control; mA and/or kV adjustment per patient size (includes targeted exams where dose is matched to clinical indication); or iterative reconstruction. Contrast material: OMNI 350; Contrast volume: 100 ml; Contrast route: INTRAVENOUS (IV); COMPARISON: CT abdomen pelvis wo con [id number] 02/13/2023 11:49 AM RADIATION DOSE METRICS: Total DLP (mGy-cm): 1059.33 FINDINGS: Intestine: Visualized small and large intestine are unremarkable. Appendix: No evidence of appendicitis. Intraperitoneal space: Unremarkable. No free air. No significant fluid collection. Lymph nodes: Unremarkable. No enlarged lymph nodes. Reproductive: Normal as visualized. Urinary bladder: Normal. No mass. Bones/joints: Unremarkable. No acute fracture. No dislocation. Soft tissues: Very minimal fatty stranding the subcutaneous fat of medial upper thigh adjacent to the perineum. No significant phlegmon and no drainable abscess. CT/CT pelvis w con* [id number] IMPRESSION: No significant inflammation observed.
[2023-06-28] MEDS: iohexol 350 mg/mL 500 mL Btl (per mL) IV (05:08)
[2023-06-28 05:10] LABS: Basophils # 0.1 10^3/uL (0.0-0.1); Basophils % 0.7 %; Eosinophils # 0.1 10^3/uL (0.0-0.8); Eosinophils % 0.7 %; Hematocrit 44.1 % (37-53); Lymphocytes # 1.3 10^3/uL (0.8-4.8); Lymphocytes % 17.5 %; Mean Corpuscular HGB Conc 31.7 g/dL (30-55); Mean Corpuscular Hemoglobin 26.4 pg (27-33); Mean Corpuscular Volume 83.2 fl (82-101); Mean Platelet Volume 10.9 fL (7.4-10.4); Monocytes # 0.5 10^3/uL (0.2-0.9); Neutrophils # 5.36 10^3/uL (1.8-7.7); Neutrophils % 73.1 %; Nucleated Red Blood Cells % 0 %; Platelet Count 178 10^3/cmm (157-399); Red Cell Distribution Width 14.6 % (12.1-15.1); White Blood Count 7.32 10^3/uL (3.29-11.43)
--- NOTE | 2023-06-28 05:27 | W.ED.NAVMDI ---
HPI - Nausea/Vomiting/Diarrhea General: Chief complaint: Nausea/Vomiting/Diarrhea Stated complaint: absesses hand, thigh n/v/d Time Seen by Provider: 06/28/23 04:20 History of Present Illness: 43-year-old male with 2 painful swollen and red areas. One is on his index finger, the other is on his left upper inner thigh. He states that he has had chills, and been nauseated and has vomited. His finger is quite painful. The area on his thigh has started to drain, and is less painful now. Associated nausea: Yes Associated symtoms: Reports nausea; Denies chest pain Review of Systems Const: Reports: fever(s) and chills Card: Denies: chest pain Resp: Denies: dyspnea GI: Reports: abdominal pain, nausea and vomiting Skin/Breast: Reports: rash, erythema, sores and new lesions [facility] ED PFSH: Medical History (Updated 06/28/23 @ 06:23 by Ar Hall DO) Psychiatric care Hypertension CKD (chronic kidney disease) stage 2, GFR 60-89 ml/min Physical Exam Const: GENERAL APPEARANCE: cooperative; not ill appearing and not frail appearing NUTRITIONAL APPEARANCE: obese HENMT: COMMON NORMALS: normocephalic, atraumatic and Normal external nose present HEAD & SCALP: normocephalic and atraumatic FACE & SINUS: normal facial exam and face symmetric NOSE: Normal external nose present Eye: COMMON NORMALS: Equal, round and reactive pupils present and EOMs intact bilaterally PUPIL: Yes Equal, round and reactive pupils present Neck/C-Spine: GENERAL: Yes trachea midline Chest: CHEST: Yes Symmetrical chest wall rise Resp: COMMON NORMALS: normal respiratory effort, No retractions, No use of accessory muscles and clear to auscultation bilaterally AUSCULTATION: clear to auscultation bilaterally Cardio: COMMON NORMALS: regular rate and regular rhythm RATE: regular rate and tachycardic RHYTHM: regular rhythm GI: COMMON NORMALS: Normal to inspection, nondistended, normoactive bowel sounds present Extremity: COMMON NORMALS: no pedal edema Neuro: PILAR COMA SCALE: document GCS findings Pilar coma scale eye opening: Spontaneous Pilar coma scale verbal response: Orientated [place] coma scale motor response: Obey commands [place] coma scale total score: 15 SENSORY EXAM: Yes extremities (intact) Psych: COMMON NORMALS: speech normal SPEECH: Yes normal speech Skin: NARRATIVE SKIN EXAM: Small indurated area to the upper inner left thigh. No fluctuance. No streaking. It is draining. Right index finger dorsal fluctuant erythematous hot area. Tender to touch. Procedures Abscess I/D Site: hand Side (if applicable): right Local Anesthetic: lidocaine 1% Amount of anesthesia used (mL): 5 Technique: incised with #11 blade Amount of fluid expressed (mL): 6 Irrigation: Yes Packing used?: none Complications: pain Course Vital Signs: Vital signs: Vital Signs Temperature 98.2 F 06/28/23 04:01 Pulse Rate 106 H 06/28/23 07:37 Respiratory Rate 16 06/28/23 07:37 Blood Pressure 137/90 06/28/23 05:42 Pulse Oximetry 95 06/28/23 07:37 Oxygen Delivery Me thod Room Air 06/28/23 06:42 Oxygen Flow Rate 1 06/28/23 05:42 MDM - Nausea/Vomiting/Diarrhea Medical Decision Making Patient is afebrile here. His white blood cell count is 7.3. His bicarbonate is 19. Finger x-ray does not show any bony destruction. CT of the pelvis was performed due to concern of potential necrotizing fasciitis versus Brooke's gangrene given the site of the previous abscess. It shows no abnormality. The finger is drained, successfully, without complication. He will be placed on clindamycin for coverage. He knows to return for worsening symptoms despite treatment. Lab Data 06/28/23 05:04 06/28/23 05:04 Radiology Impressions Finger X-Ray 06/28/23 04:28 IMPRESSION: No acute findings. Pelvis CT 06/28/23 04:28 IMPRESSION: No significant inflammation observed. Laboratory Results WBC 7.32 10^3/uL (3.29-11.43) 06/28/23 05:04 RBC 5.30 10^6/uL (3.85-5.65) 06/28/23 05:04 Hgb 14.00 g/dL (11.27-16.99) 06/28/23 05:04 Hct 44.1 % (37-53) 06/28/23 05:04 MCV 83.2 fl (82-101) 06/28/23 05:04 MCH 26.4 pg (27-33) L 06/28/23 05:04 MCHC 31.7 g/dL (30-55) 06/28/23 05:04 RDW 14.6 % (12.1-15.1) 06/28/23 05:04 Plt Count 178 10^3/cmm (157-399) 06/28/23 05:04 MPV 10.9 fL (7.4-10.4) H 06/28/23 05:04 Neut % (Auto) 73.1 % 06/28/23 05:04 Lymph % (Auto) 17.5 % 06/28/23 05:04 Davison % (Auto) 7.0 % 06/28/23 05:04 Eos % (Auto) 0.7 % 06/28/23 05:04 Baso % (Auto) 0.7 % 06/28/23 05:04 Neut # (Auto) 5.36 10^3/uL (1.8-7.7) 06/28/23 05:04 Lymph # (Auto) 1.3 10^3/uL (0.8-4.8) 06/28/23 05:04 Davison # (Auto) 0.5 10^3/uL (0.2-0.9) 06/28/23 05:04 Eos # (Auto) 0.1 10^3/uL (0.0-0.8) 06/28/23 05:04 Baso # (Auto) 0.1 10^3/uL (0.0-0.1) 06/28/23 05:04 Nucleated RBC % (auto) 0 % 06/28/23 05:04 Nucleated RBCs # 0.0 /100WBC 06/28/23 05:04 Sodium 128 mmol/L (136-145) L 06/28/23 05:04 Potassium 3.6 mmol/L (3.5-5.1) 06/28/23 05:04 Chloride 94 mmol/L (98-107) L 06/28/23 05:04 Carbon Dioxide 19 mmol/L (22-29) L 06/28/23 05:04 Anion Gap 18.6 (5-19) 06/28/23 05:04 BUN 14 mg/dL (6-20) 06/28/23 05:04 Creatinine 1.0 mg/dL (0.7-1.2) 06/28/23 05:04 GFR Calculation 81.2 mL/min (90-130) L 06/28/23 05:04 Glucose 508 mg/dL (65-115) H* 06/28/23 05:04 Calculated Osmolality 289 mOsm/kg (285-295) 06/28/23 05:04 Lactic Acid 1.3 mmol/L (0.5-2.2) 06/28/23 05:04 Calcium 8.7 mg/dL (8.5-10.5) 06/28/23 05:04 Total Bilirubin 0.4 mg/dL (0.15-1.2) 06/28/23 05:04 AST 11 U/L (0-40) 06/28/23 05:04 ALT 26 U/L (0-41) 06/28/23 05:04 Alkaline Phosphatase 118 U/L (40-130) 06/28/23 05:04 C-Reactive Protein 71.1 mg/L (0.0-4.9) H 06/28/23 05:04 Total Protein 7.2 g/dL (6.6-8.7) 06/28/23 05:04 Albumin 3.7 g/dL (3.5-5.2) 06/28/23 05:04 Globulin 3.5 g/dL (1.3-4.6) 06/28/23 05:04 Procalcitonin 0.19 ng/mL (0-0.5) 06/28/23 05:04 Urine Color Colorless (Yellow) 06/28/23 05:05 Urine Appearance Clear (CLEAR) 06/28/23 05:05 Urine pH 5 (5-7) 06/28/23 05:05 Ur Specific Quentin 1.010 (1.005-1.030) 06/28/23 05:05 Urine Protein 1+ (Negative) H 06/28/23 05:05 Urine Glucose (UA) 4+ (Normal) H 06/28/23 05:05 Urine Ketones 2+ (Negative) H 06/28/23 05:05 Urine Blood 2+ (Negative) H 06/28/23 05:05 Urine Nitrate Negative (Negative) 06/28/23 05:05 Urine Bilirubin Neg (Negative) 06/28/23 05:05 Urine Urobilinogen Neg mg/dL (Negative) 06/28/23 05:05 Ur Leukocyte Esterase Negative (Negative) 06/28/23 05:05 Urine RBC 0-4 /hpf (0-2) H 06/28/23 05:05 Urine WBC 0-4 /hpf (0-5) H 06/28/23 05:05 Ur Squamous Epith Cells 0-4 /hpf (0-5) H 06/28/23 05:05 Amorphous Sediment Not Reportable 06/28/23 05:05 Urine Bacteria Trace /hpf (NONE) 06/28/23 05:05 All radiology interpretation(s) finalized by discharge Discharge Plan Discharge Patient Disposition: Home Clinical Impression: Abscess of finger, Abscess of left thigh, Finger osteomyelitis, right, Acute hyperglycemia Condition: Stable Prescriptions: New ketorolac 10 mg tablet 10 mg PO TID PRN (Reason: pain) Qty: 10 0RF metformin 500 mg tablet 500 mg PO BID Qty: 60 0RF Changed clindamycin HCl 300 mg capsule 300 mg PO QID 10 Days Qty: 40 0RF No Action mupirocin 2 % ointment 1 applic topical TID 10 Days Qty: 15 0RF ibuprofen 800 mg tablet 800 mg PO Q8H PRN (Reason: pain) Qty: 14 0RF ibuprofen 800 mg Tablet 800 mg PO BID bupropion HCl 150 mg Tablet Extended Release 24 Hr 150 mg PO DAILY 30 Days Qty: 30 1RF gabapentin 300 mg capsule 300 mg PO TID 30 Days Qty: 90 1RF trazodone 100 mg Tablet 200 mg PO BEDTIME 30 Days Qty: 60 1RF lisinopril 20 mg Tablet 20 mg PO QAM 30 Days Qty: 30 1RF hydrochlorothiazide 25 mg Tablet 25 mg PO QAM 30 Days Qty: 30 1RF Discharge Orders: Discharge ED (Routine); Ordered 06/28/23 Ordered By: Ar Hall Patient Instructions: Abscess (ED), Opioid Safety, Pain Management Activity Restrictions/Additional Instructions: Keep wound clean and dry for 24 hours, then may wash with soap and water. Do not soak. Antibiotics as directed. See your doctor in follow-up next week. Return for fever despite 3-4 doses of antibiotics, worsening pain or swelling despite antibiotics, redness or streaking despite antibiotics, any other concerning symptoms. Coding Level of Care Code ED Director Commercial Sales for [facility]ra Markham
[2023-06-28 05:29] LABS: Glucose Urine UA 4+ (Normal); Ketones Urine 2+ (Negative); Protein Urine 1+ (Negative); Urine Appearance Clear (CLEAR); Urine Color Colorless (Yellow); pH Urine 5 (5-7)
[2023-06-28 05:30] LABS: Add Urine Microscopic? YES; Bacteria Urine TRACE /hpf; Bilirubin Urine Neg (Negative); Blood Urine 2+ (Negative); Leukocyte Esterase Urine Negative (Negative); Nitrate Urine Negative (Negative); RBC Urine 0-4 /hpf (0-2); Squamous Epithelial Cell Urine 0-4 /hpf (0-5); Urobilinogen Urine Neg (Negative); WBC Urine 0-4 /hpf (0-5)
[2023-06-28 05:30] LABS: Alanine Aminotransferase 26 U/L (0-41); Albumin Level 3.7 g/dL (3.5-5.2); Alkaline Phosphatase 118 U/L (40-130); Anion Gap 18.6 (5-19); Aspartate Amino Transferase 11 U/L (0-40); Blood Urea Nitrogen 14 mg/dL (6-20); C Reactive Protein 71.1 mg/L (0.0-4.9); Calcium 8.7 mg/dL (8.5-10.5); Carbon Dioxide 19 mmol/L (22-29); Chloride 94 mmol/L (98-107); Creatinine Clr Calc Pharmacy 128.5557; Globulin 3.5 g/dL (1.3-4.6); Glomerular Filtration Rate 81.2 mL/min (90-130); Lactic Sepsis W/Reflex 1.3 mmol/L (0.5-2.2); Osmolality Calculated 289 mOsm/kg (285-295); Potassium 3.6 mmol/L (3.5-5.1); Sodium 128 mmol/L (136-145); Total Bilirubin 0.4 mg/dL (0.15-1.2); Total Protein 7.2 g/dL (6.6-8.7)
[2023-06-28 05:32] VITALS: RESP 18
[2023-06-28] MEDS: sodium chloride 0.9% 1,000 ML 999 ML IV (05:32)
[2023-06-28] MEDS: ondansetron 2 mg/ML SDV 2 mL 4 MG IVP (05:32)
[2023-06-28] MEDS: fentaNYL 50 mcg/mL INJ 2mL 75 MCG IVP (05:32)
[2023-06-28 05:34] LABS: Glucose 508 mg/dL (65-115)
[2023-06-28 05:37] LABS: Procalcitonin 0.19 ng/mL (0-0.5)
[2023-06-28 05:42] VITALS: BP 137/90; PULSE 103; RESP 18; O2SAT 93
[2023-06-28 06:36] VITALS: RESP 18
[2023-06-28] MEDS: ketorolac 30 mg/mL INJ IVP (06:36)
[2023-06-28] MEDS: HYDROmorphone 1 mg/mL INJ 1 mL IVP (06:36)
[2023-06-28 06:42] VITALS: PULSE 106; RESP 16; O2SAT 95
[2023-06-28 07:37] VITALS: PULSE 106; RESP 16; O2SAT 95
== END 2023-06-28 07:41 | disposition home or self-care (01) ==
PROVIDERS: Emergency Provider Emergency Medicine
DX: L02.511 Cutaneous abscess of right hand (principal); L02.416 Cutaneous abscess of left lower limb; M86.141 Other acute osteomyelitis, right hand; R73.9 Hyperglycemia, unspecified; I12.9 Hypertensive chronic kidney disease with stage 1 through stage 4 chronic kidney disease, or unspecified chronic kidney disease; N18.2 Chronic kidney disease, stage 2 (mild); Z79.899 Other long term (current) drug therapy
CPT/HCPCS: 26010; 72193; 73140; 80053; 81001; 83605; 84145; 85025; 86140; 96361; 96374; 96375; 99285; J1170; J1885; J2405; J3010; J7030; Q9967

== ENCOUNTER 2023-07-07 00:52 | Emergency (ER) | payer MEDICAID, SELFPAY ==
[2023-07-07 00:59] VITALS: BP 166/110; PULSE 107; RESP 16; TEMP 36.4; O2SAT 96; BMI 41.5
--- NOTE | 2023-07-07 01:30 | ED_ITS ---
HPI - Skin/Abscess/Foreign Bdy General: Chief complaint: Skin/Abscess/Foreign Body Stated complaint: finger injury Time Seen by Provider: 07/07/23 01:24 History of Present Illness: Patient presents to the ER with complaints of finger wound. Middle finger and right hand. Patient was seen approximately week ago for the same thing where was drained and he was placed on clindamycin. Patient said he got better for couple days stayed the same for couple days and in the last couple days it got worse. Is swollen on the distal tip it is not draining and is not streaking. Patient says he took his antibiotics as directed. Review of Systems General: Reports: 10 or more systems reviewed and unremarkable except in HPI and below PFSH ED PFSH: Medical History Psychiatric care Hypertension CKD (chronic kidney disease) stage 2, GFR 60-89 ml/min Physical Exam Const: COMMON NORMALS: no acute distress, average body habitus, patient oriented x3, no limitations, healthy appearing, alert and well nourished Neck/C-Spine: COMMON NORMALS: no JVD Chest: COMMONS NORMALS: normal inspection of the chest and normal palpation of entire chest wall Resp: COMMON NORMALS: normal respiratory effort, No retractions, No use of accessory muscles and clear to auscultation bilaterally AUSCULTATION: clear to auscultation bilaterally Cardio: COMMON NORMALS: no JVD, regular rate, regular rhythm, S1 normal heart sound present, S2 normal heart sound present, No gallops present (Cardio), No clicks present (Cardio), No murmurs present (Cardio) and No rub (Cardio) RATE: regular rate RHYTHM: regular rhythm HEART SOUNDS: S1 normal heart s ound present and S2 normal heart sound present GI: COMMON NORMALS: Normal to inspection, nondistended, normoactive bowel sounds present, Soft to palpation, non-tender, No hepatosplenomegaly present and no masses PALPATION: Yes Soft to palpation and Yes No hepatosplenomegaly present Extremity: NARRATIVE EXTREMITY EXAM: Distal tip of right index finger red swollen irritated fluctuant, nonstreaky nondraining Neuro: COMMON NORMALS: patient oriented x3 SENSORIUM/ORIENTATION: Yes alert Procedures Abscess I/D Site: other (Right index finger) Local Anesthetic: bupivacaine 0.5% Amount of anesthesia used (mL): 3 Technique: incised with #11 blade Amount of fluid expressed (mL): 3 Irrigation: No Packing used?: plain Course Vital Signs: Vital signs: Vital Signs Temperature 97.5 F L 07/07/23 00:59 Pulse Rate 107 H 07/07/23 00:59 Respiratory Rate 16 07/07/23 00:59 Blood Pressure 166/110 07/07/23 00:59 Pulse Oximetry 96 07/07/23 00:59 Oxygen Delivery Me thod Room Air 07/07/23 00:59 MDM - Skin/Abscess/Foreign Bdy Medicial Decision Making Patient is distal right index finger was I indeed and culture was obtained. It was packed with quarter inch gauze. Patient is to finish the clindamycin he is currently on and await the culture results. Differential Diagnosis Likely abscess of skin or subcutaneous tissue Medical Records I reviewed the patient's medical records. Lab Data I reviewed the patient's lab results. No radiology studies performed this visit Discharge Plan Discharge Patient Disposition: Home Clinical Impression: Abscess of skin or subcutaneous tissue Qualifiers: Site of cutaneous abscess: other site Qualified Code(s): L02.818 - Cutaneous abscess of other sites Condition: Stable Prescriptions: New hydrocodone-acetaminophen 5-325 mg tablet 1 tab PO Q6H PRN (Reason: pain) Qty: 14 0RF No Action mupirocin 2 % ointment 1 applic topical TID 10 Days Qty: 15 0RF ibuprofen 800 mg tablet 800 mg PO Q8H PRN (Reason: pain) Qty: 14 0RF ketorolac 10 mg tablet 10 mg PO TID PRN (Reason: pain) Qty: 10 0RF clindamycin HCl 300 mg capsule 300 mg PO QID 10 Days Qty: 40 0RF metformin 500 mg tablet 500 mg PO BID Qty: 60 0RF ibuprofen 800 mg Tablet 800 mg PO BID bupropion HCl 150 mg Tablet Extended Release 24 Hr 150 mg PO DAILY 30 Days Qty: 30 1RF gabapentin 300 mg capsule 300 mg PO TID 30 Days Qty: 90 1RF trazodone 100 mg Tablet 200 mg PO BEDTIME 30 Days Qty: 60 1RF lisinopril 20 mg Tablet 20 mg PO QAM 30 Days Qty: 30 1RF hydrochlorothiazide 25 mg Tablet 25 mg PO QAM 30 Days Qty: 30 1RF Discharge Orders: Discharge ED (Routine); Ordered 07/07/23 Ordered By: Juan Tes Referrals: Qasim Pascual MD [Primary Care Provider] - 1-3 days Patient Instructions: Abscess Incision and Drainage (DC) Activity Restrictions/Additional Instructions: Please take your medicine as directed. Please finish your clindamycin. Please await the culture data from your wound this usually takes about 3 days. You may be receiving a call we may need to change antibiotics. Otherwise massage the area once daily and try to keep the wound open and draining. The longer drains the better off you will be. Please follow-up with your doctor within the next 3 days for further evaluation and treatment. Coding Level of Care Code ED [employer] Operator Chief for Sahra Markham
[2023-07-07] MEDS: BUPivacaine 0.5% INJ 10 mL INJECTION (01:42)
== END 2023-07-07 02:38 | disposition home or self-care (01) ==
PROVIDERS: Emergency Provider Emergency Medicine; PCP Internal Medicine
DX: L02.511 Cutaneous abscess of right hand (principal); I12.9 Hypertensive chronic kidney disease with stage 1 through stage 4 chronic kidney disease, or unspecified chronic kidney disease; N18.2 Chronic kidney disease, stage 2 (mild); Z79.84 Long term (current) use of oral hypoglycemic drugs
CPT/HCPCS: 26010; 87070; 99283; J3490